=== PATIENT | male | born 1955 | race Caucasian/White ===

== ENCOUNTER 2017-09-20 12:30 | Day surgery (SDC) | payer OTHER ==
--- NOTE | 2017-09-20 08:27 | HP ---
DATE OF SURGERY: 09/20/2017 HISTORY OF PRESENT ILLNESS: The patient is a 61 year-old with bulge, not much pain, unsure how long it has been there. He lost a lot of weight. He is felt to have moderately large right inguinal hernia on exam. PAST MEDICAL HISTORY: Reflux. PAST SURGICAL HISTORY: He denies prior inguinal hernia repair in the past. He did have a knee scope in the past. MEDICATIONS: Dexilant. ALLERGIES: NKDA. FAMILY HISTORY: Negative in regards to this problem. SOCIAL HISTORY: No significant alcohol abuse. REVIEW OF SYSTEMS: Twelve systems reviewed. No chest pain or palpitations other systems negative or noncontributory as above and per preadmission questionnaire. PHYSICAL EXAMINATION: GENERAL: No acute distress. HEENT: Sclerae nonicteric. NECK: No JVD. CHEST: Equal excursion, nonlabored breathing. CVS: Regular rate and rhythm. ABDOMEN: Soft. No peritoneal signs. Moderately large right inguinal hernia on exam. EXTREMITIES: No significant edema. NEURO: Alert, oriented, moving extremities symmetrically. No gross motor deficits noted. IMPRESSION: Right inguinal hernia. I feel the patient will benefit from repair. We discussed the options of open versus laparoscopic. Given the size of hernia, might have less recurrence with open repair and better fixation with mesh. Risks and benefits explained in detail but not limited to bleeding or infection, risk of hematoma or seroma formation, risk of ingrown hair or suture reaction, risk of mesh infection possibly requiring removal. Risk of aches, pains, burning or numbness lower abdomen, groin, thigh or scrotal area possibly chcf or chronic in nature up to 10 to 12% and possibly interfering with sexual function from pain standpoint. He also understands possibility of higher risk of intermittent ache or twinge, general risk of anesthesia, deep venous thrombosis, pulmonary embolism or pneumonia. Overall risk of hernia recurrence. He understands all of the above but not limited to, will proceed with open repair of moderately large right inguinal hernia repair with mesh as an outpatient.
[~2017-09-20 12:30] MED LIST: Lactated Ringers 1,000 ML IV ONE; Sensorcaine 0.25% 10 ML ONE
[2017-09-20] MEDS ORDERED: DIPRIVAN 200 MG/20 ML IV ONE (12:31)
[2017-09-20] MEDS ORDERED: Naropin 0.5% 30 ML VIAL IJ ONE (12:31)
[2017-09-20] MEDS ORDERED: SUBLIMAZE 100 MCG/2 ML IV ONE (12:31)
[2017-09-20] MEDS ORDERED: CEFAZOLIN 2 GM-D5W BAG** 2 GM/50 ML ML IV SCH (13:30)
[2017-09-20] MEDS ORDERED: Lactated Ringers 1,000 ML IV SCH (13:30)
[2017-09-20] MEDS ORDERED: Zofran 4 MG/2 ML VIAL IV ONE (13:58)
[2017-09-20] MEDS ORDERED: BRIDION 200MG/2ML IV ONE (13:58)
[2017-09-20] MEDS ORDERED: TORAdol 30 mg Injection IJ ONE (13:58)
[2017-09-20] MEDS ORDERED: Decadron 4 MG INJ IV ONE (13:58)
[2017-09-20] MEDS ORDERED: Zemuron 100 MG/10 ML IJ ONE (13:58)
[2017-09-20] MEDS ORDERED: SUBLIMAZE 100 MCG/2 ML ONE (15:41)
[2017-09-20 16:24] VITALS: O2SAT 98
[2017-09-20 16:53] VITALS: BP 137/81; PULSE 58
--- NOTE | 2017-09-21 10:31 | OP ---
SURGERY DATE/TIME: 09/20/2017 1430 PREOPERATIVE DIAGNOSIS: Right inguinal hernia. POSTOPERATIVE DIAGNOSIS: Right inguinal hernia. PROCEDURES: Right inguinal hernia repair with mesh. SURGEON: Dr. Mino Ware. COPY PREPARER: Keenan Singer M.D. [facility] Resident. ANESTHESIA: General. ESTIMATED BLOOD LOSS: Minimal. INDICATIONS: As noted above. Risks and benefits explained in detail and not limited to and consent obtained. The site had been confirmed in the preoperative holding area. DESCRIPTION OF PROCEDURE AND FINDINGS: The patient is taken to the operating room. General anesthesia induced. Abdomen and groin prepped and draped in usual sterile fashion. After general anesthesia, a transverse incision made. Dissection carried down through Rosa Maria fascia. A small, little anterior epigastric vein clamped, divided and ligated with Vicryl tie. Dissection carried down through external oblique towards the direction of the external ring carefully elevating the cord up off the pubic tubercle with Pope drain. Cremasteric fibers carefully . A very small splayed out area ilioinguinal and iliohypogastric nerve branches, the visible branches were carefully protected as well as possible and mobilized up off pubic tubercle with Dallin drain. Cremasteric fibers . There was no evidence of any obvious indirect component. He did have a very weak moderately large direct hernia component. It was felt this would benefit from imbricating downward. It was imbricated downward with interrupted 0 PDS normalizing the direct space. I felt he would benefit from mesh repair. A 2 x 4 piece of mesh cut to appropriate dimensions with keyhole cut. It was then secured to the fascia overlying pubic tubercle with 0 Prolene run along Ronni's ligament along the shelving portion of the inguinal ligament with 0 Prolene. 0 Prolene used to transfix the rectus fascia medially. 0 Vicryl used to transfix aponeurosis internal oblique superiorly avoiding the visible ilioinguinal and iliohypogastric nerve branches. Tails of the mesh lying nice and flat under external oblique. They were secured together with interrupted 0 Prolene. The internal ring was felt to be not too tight. Mesh is lying nice and flat in tension-free manner. Good hemostasis noted. External oblique closed with 0 Vicryl. Rosa Maria closed with 3-0 Vicryl, subcu closed with 3-0 Vicryl, skin closed with 4-0 Vicryl. Steri-Strips and sterile dressing applied. The patient tolerated the procedure well. There were no immediate complications. He had very weak inguinal floor. It was felt that he was at moderate risk of recurrence. I felt that this was the best repair possible at this point. Findings discussed with the family out in the waiting area.
== END 2017-09-20 16:58 | disposition home or self-care (01) ==
LOC: SDC 12:30
PROVIDERS: ATTEND Surgery
DX: K40.90 Unilateral inguinal hernia, without obstruction or gangrene, not specified as recurrent (principal)
CPT/HCPCS: 64486; 76937; 76942; 94250; C1781; J0690; J1100; J1885; J2405; J2704; J2795; J3010

== ENCOUNTER 2019-12-08 12:42 | Emergency (ER) | payer MEDICARE, OTHER ==
--- NOTE | 2019-12-08 13:04 | ERPHSYRPT ---
- History of Present Illness Time Seen by Provider: 12/08/19 12:55 Source: patient, family Exam Limitations: no limitations Patient Subjective Stated Complaint: pt here for pain and swelling to left lower leg, swellng started last night, pain for 2 days now Triage Nursing Assessment: pt alert, walked in, resp easy, face mask in place, has swelling and tenderness to left lower leg, no reddness. strong pedal pulse Physician History: This is a 63-year-old white male whose had a left knee replacement in September 2018. A couple days ago the patient was outside his house working. He does not specifically recall injury to his left knee but for 2 days he has had pain in the posterior aspect of his left knee. Last night there is swelling noted. The swelling has from the knee distally on the left side. Patient called his orthopedic surgeon in the office told him to go to the emergency department to get evaluated for a possible deep venous thrombosis. Patient also complains of pain in his right foot specifically in his toes. This is been intermittent pain for 3 months. He denies any specific injury but there is pain present. Patient denies shortness of breath and he denies chest pain Method of Injury: unknown Occurred: days ago (2) Quality: aching, throbbing Severity of Pain-Max: moderate Severity of Pain-Current: moderate Lower Extremities Pain: leg: left, knee: left Modifying Factors: Improves With: movement Allergies/Adverse Reactions: hydrocodone Adverse Reaction (Verified 12/08/19 12:54) Vomiting makes sick Hx Influenza Vaccination/Date Given: Yes Hx Pneumococcal Vaccination/Date Given: No Immunizations Up to Date: Yes Travel Risk - International Travel Have you traveled outside of the country in past 3 weeks: No - Coronavirus Screening Are you exhibiting any of the following symptoms?: No Close contact with a COVID-19 positive Pt in past 14-21 Days: No - Review of Systems Constitutional: No Symptoms Eyes: No Symptoms Ears, Nose, & Throat: No Symptoms Respiratory: No Symptoms Cardiac: No Symptoms Abdominal/Gastrointestinal: No Symptoms Genitourinary Symptoms: No Symptoms Musculoskeletal: Other (Left knee pain and left lower leg swelling) Skin: No Symptoms Neurological: No Symptoms Psychological: No Symptoms Endocrine: No Symptoms Hematologic/Lymphatic: No Symptoms Immunological/Allergic: No Symptoms All Other Systems: Reviewed and Negative - Past Medical History Pertinent Past Medical History: Yes Neurological History: No Pertinent History ENT History: No Pertinent History Cardiac History: No Pertinent History Respiratory History: No Pertinent History Endocrine Medical History: No Pertinent History Musculoskeletal History: Osteoarthritis GI Medical History: GERD History: No Pertinent History Psycho-Social History: No Pertinent History Male Reproductive Disorders: No Pertinent History Other Medical History: GERD. HX OF INGUINAL HERNIA REPAIR RIGHT - Past Surgical History Past Surgical History: Yes Neuro Surgical History: No Pertinent History Cardiac: No Pertinent History Respiratory: No Pertinent History Gastrointestinal: No Pertinent History, Hernia Repair Genitourinary: No Pertinent History Musculoskeletal: Other Male Surgical History: No Pertinent History Other Surgical History: knee scope times 2, left knee surgery - Social History Smoking Status: Former smoker Exposure to second hand smoke: No Drug Use: none Patient Lives Alone: No - Nursing Vital Signs Nursing Vital Signs: Initial Vital Signs Temperature 97.6 F 12/08/19 12:46 Pulse Rate 60 12/08/19 12:46 Respiratory Rate 18 12/08/19 12:46 Blood Pressure 134/82 12/08/19 12:46 O2 Sat by Pulse Oximetry 99 12/08/19 12:46 Pain Scale Pain Intensity 4 - Physical Exam General Appearance: no apparent distress, alert, anxiety Eyes, Ears, Nose, Throat Exam: normal ENT inspection, moist mucous membranes Neck Exam: normal inspection, non-tender, supple, full range of motion Cardiovascular/Respiratory Exam: chest non-tender, normal breath sounds, regular rate/rhythm, heart sounds normal, no respiratory distress Gastrointestinal/Abdominal Exam: non-tender Back Exam: normal inspection, normal range of motion, No CVA tenderness, No vertebral tenderness Hips Exam: bilateral: non-tender, normal inspection, normal range of motion, no evidence of injury Legs Exam: left leg: normal range of motion, no evidence of injury, soft tissue tenderness, swelling (Left lower leg below the knee) Knees Exam: left knee: normal inspection, normal range of motion, no evidence of injury, bone tenderness, soft tissue tenderness Ankle Exam: bilateral ankle: non-tender, normal inspection, normal range of motion, no evidence of injury Foot Exam: right foot: bone tenderness (Toes), soft tissue tenderness (Toes), left foot: non-tender, bilateral foot: normal inspection, normal range of motion, no evidence of injury Neuro/Tendon Exam: normal sensation, normal motor functions, normal tendon func tions Mental Status Exam: alert, oriented x 3, cooperative Skin Exam: normal color, warm, dry SpO2 Interpretation: normal SpO2: 99 O2 Delivery: Room Air - Course Nursing assessment & vital signs reviewed: Yes Ordered Tests: Active Orders 24 hr Category Date Time Status FOOT (MINIMUM 3 VIEWS) Stat Exams 12/08/19 13:06 Completed KNEE (3 VIEWS) Stat Exams 12/08/19 13:06 Completed LOWER LEG Stat Exams 12/08/19 13:07 Completed VENOUS UNILAT/LIMITED EXTREMIT [US] Stat Exams 12/08/19 13:07 Completed - Progress Progress: unchanged Progress Note: 12/08/19 14:20 X-ray of right foot reveals no acute fracture or dislocation X-ray of the left tibia and fibula reveals no acute fracture or dislocation X-ray of left knee shows a small nonspecific effusion with an intact prosthesis. Venous Doppler of the left lower extremity is negative for deep venous thrombosis This patient and his spouse state that they believe he has taken tramadol in the past which is helped his pain. I will send a prescription to their pharmacy. I also instructed him to elevate his left lower extremity above the level of his heart and use an ice pack. Counseled pt/family regarding: diagnosis, need for follow-up, rad results - Departure Departure Disposition: Home Clinical Impression: Left anterior knee pain, Left leg swelling Condition: Stable Critical Care Time: No Referrals: ANEUDY DERAS DO [Primary Care Provider] - Additional Instructions: Use an ice pack 3 times a day for 10 to 15 minutes at a time for the next 72 hours. When not ambulating, elevate the left lower extremity above the level of the heart. Follow-up with your primary care physician or orthopedic surgeon for persistent swelling and leg pain. Prescriptions: Tramadol HCl 50 mg [Ultram 50 mg] 50 mg PO TID PRN #10 tablet PRN Reason: Moderate Pain
--- NOTE | 2019-12-08 13:51 | XRAY ---
Indication: Left leg pain and swelling. Two-dimensional sonogram and color Doppler imaging of the major venous vessels of the left leg was performed. Comparison: None No thrombus seen in the examined deep venous vessels of the left leg including greater saphenous vein. Veins demonstrate normal compressibility. Venous waveforms are normal with and without augmentation. Impression: Left leg negative for DVT.
--- NOTE | 2019-12-08 14:02 | XRAY ---
Indication: Pain and swelling following fall. Comparison: None 2 view left lower leg demonstrates medial knee hemiarthroplasty with intact prosthesis and a small plantar heel spur. No other bony, articular, or soft tissue abnormalities.
--- NOTE | 2019-12-08 14:04 | XRAY ---
Indication: Pain and swelling following fall. Comparison: None 3 view left knee demonstrates medial hemiarthroplasty with intact prosthesis, lateral compartment degenerative chondrocalcinosis/spurring, tiny patella spurring, and small nonspecific effusion. No other bony, articular, or soft tissue abnormalities.
--- NOTE | 2019-12-08 14:04 | XRAY ---
Indication: Pain and swelling following fall. Comparison: None 3 nonweightbearing views right foot demonstrates small plantar heel spur. No other bony, articular, or soft tissue abnormalities.
[2019-12-08 14:08] VITALS: BP 112/72; PULSE 57
[2019-12-08 14:25] VITALS: O2SAT 99
== END 2019-12-08 14:40 | disposition home or self-care (01) ==
LOC: ED 12:42
DX: M25.562 Pain in left knee (principal); M79.89 Other specified soft tissue disorders; Z96.652 Presence of left artificial knee joint
CPT/HCPCS: 73562; 73590; 73630; 93971; 99283

== ENCOUNTER 2021-05-19 16:04 | Emergency (ER) | payer MEDICARE ==
--- NOTE | 2021-05-19 16:33 | ERPHSYRPT ---
- History of Present Illness Source: patient Exam Limitations: no limitations Patient Subjective Stated Complaint: pt here for cough, runny nose, nausea for 2 days now Triage Nursing Assessment: pt alert, resp easy, skin w/d/p. face mask in place, abd soft, Physician History: 65 [address] w [address]/Cough/Coryza/Nausea x1 day. His daughter has similar symptoms. Fever/myalgias/vomiting/diarrhea/chest pain/dyspnea are denied. Timing/Duration: yesterday Activities at Onset: rest Severity of Dyspnea-Max: mild Severity of Dyspnea-Current: mild Possible Cause: no prior episodes Modifying Factors: Improves With: coughing Associated Symptoms: cough, No edema, No fever, No insomnia, No lightheadedness, No wheezing, No weakness, No ankle swelling, No chills, No hemoptysis, No calf pain, No dizziness, No heaviness, No heart racing, No lightheadedness, No leg swelling, No muscle spasms feet, No muscle spasms hands, No painful breathing, No productive cough, No sweating, No tightness, No tingling face Allergies/Adverse Reactions: hydrocodone Adverse Reaction (Verified 05/19/21 16:08) Vomiting makes sick Hx Influenza Vaccination/Date Given: No Hx Pneumococcal Vaccination/Date Given: Yes Travel Risk - International Travel Have you traveled outside of the country in past 3 weeks: No - Coronavirus Screening Are you exhibiting any of the following symptoms?: Yes Symptoms: Cough: New Onset, Vomiting/Diarrhea, Headaches/Body Aches/Fatigue Close contact with a COVID-19 positive Pt in past 14-21 Days: No - Vaccine Status Have you recieved a Covid-19 vaccination: No - Review of Systems Constitutional: No Symptoms Eyes: No Symptoms Ears, Nose, & Throat: No Symptoms, Throat Pain Respiratory: No Symptoms, Cough Cardiac: No Symptoms Abdominal/Gastrointestinal: No Symptoms, Nausea, No Vomiting, No Diarrhea Genitourinary Symptoms: No Symptoms Musculoskeletal: No Symptoms Skin: No Symptoms Neurological: No Symptoms Psychological: No Symptoms Endocrine: No Symptoms Hematologic/Lymphatic: No Symptoms Immunological/Allergic: No Symptoms - Past Medical History Pertinent Past Medical History: No Neurological History: No Pertinent History ENT History: No Pertinent History Cardiac History: No Pertinent History Respiratory History: No Pertinent History Endocrine Medical History: No Pertinent History Musculoskeletal History: Osteoarthritis GI Medical History: GERD History: No Pertinent History Psycho-Social History: No Pertinent History Male Reproductive Disorders: No Pertinent History Other Medical History: GERD. HX OF INGUINAL HERNIA REPAIR RIGHT - Past Surgical History Past Surgical History: Yes Neuro Surgical History: No Pertinent History Cardiac: No Pertinent History Respiratory: No Pertinent History Gastrointestinal: No Pertinent History, Hernia Repair Genitourinary: No Pertinent History Musculoskeletal: Other Male Surgical History: No Pertinent History Other Surgical History: knee scope times 2, left knee surgery - Social History Smoking Status: Former smoker Exposure to second hand smoke: No Drug Use: none Patient Lives Alone: No Significant Family History: no pertinent family hx - Nursing Vital Signs Nursing Vital Signs: Initial Vital Signs Temperature 98.8 F 05/19/21 16:10 Pulse Rate 107 H 05/19/21 16:10 Respiratory Rate 18 05/19/21 16:10 Blood Pressure 160/83 05/19/21 16:10 O2 Sat by Pulse Oximetry 99 05/19/21 16:10 Pain Scale Pain Intensity 0 Hypertension - Physical Exam General Appearance: no apparent distress Eye Exam: PERRL/EOMI, eyes nml inspection Ears, Nose, Throat Exam: hearing grossly normal, normal ENT inspection, normal pharynx Neck Exam: normal inspection, non-tender, supple, full range of motion, No Brudzinski, No Kernig's, No meningismus Respiratory Exam: normal breath sounds, lungs clear, airway intact, No respiratory distress Cardiovascular/Chest Exam: normal heart sounds, regular rate/rhythm, normal peripheral pulses, No murmur Abdominal/Gastrointestinal Exam: soft, normal bowel sounds, No tenderness Extremity Exam: non-tender, normal range of motion, normal inspection, normal capillary refill, no calf tenderness, no pedal edema Peripheral Pulses Exam: carotid (R): 2+, carotid (L): 2+ Neurologic Exam: alert, oriented x 3, cooperative, director of assessing II-XII nml as tested, normal mood/affect, sensation nml, No motor deficits, No sensory deficit Skin Exam: normal color, warm, dry Lymphatic Exam: No adenopathy SpO2 Interpretation: normal SpO2: 99 O2 Delivery: Room Air - Course Nursing assessment & vital signs reviewed: Yes Lab/Rad Data: Laboratory Results 05/19/21 05/19/21 Range/Units 16:40 16:28 Influenza Type A Ag NEGATIVE (NEGATIVE) Influenza Type B Ag NEGATIVE (NEGATIVE) RSV (PCR) NEGATIVE (Negative) SARS-CoV-2 (PCR) NEGATIVE (NEGATIVE) Group A Strep Antibody NOT DETECTED (NEGATIVE) - Progress Counseled pt/family regarding: lab results, diagnosis, need for follow-up - Departure Departure Disposition: Home Clinical Impression: Bronchitis Condition: Stable Critical Care Time: No Referrals: DOCTOR,NO FAMILY [Primary Care Provider] - Follow up/PCP as directed Instructions: Acute Bronchitis, Adult (DC) Additional Instructions: Follow up with your family MD Start Doxycycline if cough gets worse or if you develop a temperature greater than 100.5 Prescriptions: Doxycycline Monohydrate 100 mg PO BID #14
[2021-05-19 17:24] LABS: INFLUENZA A NEGATIVE (NEGATIVE); INFLUENZA B NEGATIVE (NEGATIVE); RESPIRATORY SYNCTIAL VIRUS NEGATIVE (Negative); SARS-CoV-2 Xpert Express NEGATIVE (NEGATIVE)
[2021-05-19 17:38] VITALS: BP 147/76; PULSE 93
[2021-05-19 21:00] VITALS: O2SAT 99
== END 2021-05-19 17:43 | disposition home or self-care (01) ==
LOC: ED 16:04
DX: J40 Bronchitis, not specified as acute or chronic (principal); J02.9 Acute pharyngitis, unspecified; R05.1 Acute cough; R09.81 Nasal congestion; R11.0 Nausea; K21.9 Gastro-esophageal reflux disease without esophagitis
CPT/HCPCS: 0241U; 87651; 99283

== ENCOUNTER 2024-12-06 17:52 | Emergency (ER) | payer MEDICARE ==
[2024-12-06 18:03] VITALS: TEMP 97.2
[2024-12-06] MEDS ORDERED: ZOFRAN ODT 4 MG ONE (18:38)
[2024-12-06] MEDS ORDERED: MOTRIN 600 MG ONE (18:38)
[2024-12-06] MEDS ORDERED: NORCO 5/325 MG ONE ×2 (18:39→21:57)
[2024-12-06] MEDS: ZOFRAN ODT 4 MG PO ONE (18:41)
[2024-12-06] MEDS: NORCO 5/325 MG PO ONE ×2 (18:41→21:58)
[2024-12-06] MEDS: MOTRIN 600 MG PO ONE (18:42)
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
[2024-12-06] MEDS ORDERED: Augmentin 875-125 Tablet ONE (18:53)
[2024-12-06] MEDS ORDERED: Adacel Vial IM ONE (18:53)
[2024-12-06] MEDS: Adacel Vial IM ONE (18:55)
[2024-12-06] MEDS: Augmentin 875-125 Tablet PO ONE (18:56)
[2024-12-06 21:07] VITALS: RESP 18
[2024-12-06 22:03] VITALS: BP 131/81; PULSE 60; O2SAT 96
--- NOTE | 2024-12-07 08:35 | XRAY ---
Indication: Pain following fall. Multiple contiguous axial images obtained through the head without contrast. Comparison: None Age-appropriate global atrophy, minimal periventricular degenerative microischemia, and 7 mm focus old infarct left insula. No acute intracranial hemorrhage, abnormal extra-axial fluid collection, or mass effect. 4th ventricle is midline without hydrocephalus. Gao-white matter differentiation preserved. Bony calvarium intact. 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 Remaining visualized paranasal sinuses and mastoid air cells are clear. 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
--- NOTE | 2024-12-07 08:35 | XRAY ---
Indication: Pain following fall. Comparison: None 3 view right shoulder demonstrates osteopenia and mild acromioclavicular degenerative arthropathy with tiny heterotopic ossification. No acute bony, articular, or soft tissue abnormalities.
--- NOTE | 2024-12-07 08:39 | XRAY ---
Indication: Left orbit/maxillofacial pain following fall. Nasal laceration. Multiple contiguous axial images obtained through facial bones. Sagittal and coronal reformatted images obtained. Comparison: None A few bilateral dental amalgams produces beam artifact. Nondepressed right nasal bone fracture. No other acute fracture or suspicious bony lesions. Orbits including roof, schulz, and floors intact. Paranasal sinuses and nasal passages are clear. Incidental small left ethmoid sinus osteoma. Visualized noncontrasted soft tissues demonstrates minimal bilateral lateral carotid calcifications. No suspicious focal solid/cystic soft tissue mass. CT head and CT cervical spine reported separately. Impression: Right nasal bone fracture. Incidental left ethmoid sinus osteoma.
--- NOTE | 2024-12-07 08:41 | XRAY ---
Indication: Left orbit/maxillofacial pain following fall. Nasal laceration. Multiple contiguous axial images obtained through cervical spine. Sagittal and coronal reformatted images obtained. Comparison: None Osseous structures demineralized consistent with patient's age. Axial images negative for acute fracture, suspicious bony lesions, or spinal canal stenosis. There is mild/moderate multilevel degenerative spondylosis. Sagittal and coronal reformatted images demonstrates normal alignment with C3-T1 disc space narrowing. No acute compression fracture, subluxation, or jumped facet. Normal appearing craniocervical junction. Visualized noncontrasted soft tissues demonstrates minimal bilateral carotid calcifications. Lung apices are clear. CT head and CT facial bones reported separately. Impression: Negative acute fracture/subluxation. Chronic findings including osteopenia, multilevel degenerative spondylosis, and carotid calcifications.
== END 2024-12-06 22:19 | disposition home or self-care (01) ==
LOC: ED 17:52
DX: S00.31XA Abrasion of nose, initial encounter (principal); S00.83XA Contusion of other part of head, initial encounter; S02.2XXB Fracture of nasal bones, initial encounter for open fracture; S46.911A Strain of unspecified muscle, fascia and tendon at shoulder and upper arm level, right arm, initial encounter; W01.0XXA Fall on same level from slipping, tripping and stumbling without subsequent striking against object, initial encounter; M25.511 Pain in right shoulder; D16.4 Benign neoplasm of bones of skull and face; Z79.899 Other long term (current) drug therapy; Z23 Encounter for immunization

== ENCOUNTER 2025-01-26 05:50 | Observation (INO) | payer MEDICARE ==
--- NOTE | 2025-01-26 06:35 | ERPHSYRPT ---
- History of Present Illness Historian: patient, family Exam Limitations: no limitations Patient Subjective Stated Complaint: fever, chills, cough, vomiting, diarrhea (subsided) Triage Nursing Assessment: . Timing/Duration: day(s) (8) Quality: cramping (Intermittently) Abdominal Pain Onset Location: epigastric Pain Radiation: no radiation Severity of Pain-Max: mild Severity of Pain-Current: mild Modifying Factors: Improves With: coughing, vomiting Associated Symptoms: loss of appetite, nausea, vomiting, weakness, other (Generalized aching), No chest pain, No diarrhea, No fever/chills Previous symptoms: no prior history, no recent treatment Hx Tetanus, Diphtheria Vaccination/Date Given: Yes Hx Influenza Vaccination/Date Given: No Hx Pneumococcal Vaccination/Date Given: Yes <LUL QUESADA - Last Filed: 01/26/25 06:36> <HEBERT CADENA - Last Filed: 01/26/25 09:50> - History of Present Illness Time Seen by Provider: 01/26/25 06:20 Physician History: This is a 69-year-old white male patient arrives per private vehicle accompanied by spouse and is a patient of Dr. Garner with the complaint of intermittent vomiting over the last 8 days, since [facility]. Patient has associated cough and low-grade fever. Patient was exposed to individual family members at [facility] who had similar symptoms. Prior to [facility] the patient was feeling well and normal. He denies chest pain. He has no history of coronary artery disease. He has mild abdominal cramping when the vomiting comes on suddenly. Patient has never had symptoms like this before. He has never had endoscopy in the past. Patient has a history of gastroesophageal reflux disease and prostate issues. He is unable to consistently hold oral intake down. (LUL QUESADA) Allergies/Adverse Reactions: hydrocodone Adverse Reaction (Verified 01/26/25 06:17) Vomiting makes sick Home Medications: Omeprazole 20 mg PO DAILY 12/06/24 [History] Tamsulosin HCl 0.4 mg PO DAILY 12/06/24 [History] Travel Risk - International Travel Have you traveled outside of the country in past 3 weeks: No - Emerging Infectious Disease Are you exhibiting symptoms associated with any current EIDs: Yes Symptoms: Abdominal Pain, Cough: New Onset, Fever, Vomitting <LUL QUESADA - Last Filed: 01/26/25 06:36> - Review of Systems Constitutional: Fever, Weakness Eyes: No Symptoms Ears, Nose, & Throat: No Symptoms Respiratory: Cough Cardiac: No Symptoms, No Chest Pain Abdominal/Gastrointestinal: Abdominal Pain, Nausea, Vomiting, Appetite Changes Genitourinary Symptoms: No Symptoms Musculoskeletal: Arthralgias, Myalgias, No Injury Skin: No Symptoms Neurological: No Symptoms Psychological: No Symptoms Endocrine: No Symptoms Hematologic/Lymphatic: No Symptoms Immunological/Allergic: No Symptoms All Other Systems: Reviewed and Negative <LUL QUESADA - Last Filed: 01/26/25 06:36> - Past Medical History Pertinent Past Medical History: No Neurological History: No Pertinent History ENT History: No Pertinent History Cardiac History: No Pertinent History Respiratory History: No Pertinent History Endocrine Medical History: No Pertinent History Musculoskeletal History: Osteoarthritis GI Medical History: GERD, Hernia History: No Pertinent History Psycho-Social History: No Pertinent History Male Reproductive Disorders: No Pertinent History Other Medical History: GERD. HX OF INGUINAL HERNIA REPAIR RIGHT. 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 - Past Surgical History Past Surgical History: Yes Neuro Surgical History: No Pertinent History Cardiac: No Pertinent History Respiratory: No Pertinent History Gastrointestinal: Hernia Repair Genitourinary: No Pertinent History Musculoskeletal: Other Male Surgical History: No Pertinent History Other Surgical History: knee scope times 2, bilat partial knee replacement, right foot surgery Significant Family History: no pertinent family hx - Social History Smoking Status: Former smoker Exposure to second hand smoke: Yes Drug Use: none - Social Determinants of Health Will the patient participate in the screening: Yes Do you worry about a steady place to live?: No Do you have any problems with any of the following?: No known problems In the past 12 months,have you had to go without utilities?: No Transportation Issues: No Has anyone in your support network made you feel unsafe?: No Have you or anyone in your house had to go w/o enough food: No <LUL QUESADA - Last Filed: 01/26/25 06:36> - Physical Exam General Appearance: no apparent distress, mild distress, alert, anxiety, thin Eye Exam: PERRL/EOMI, eyes nml inspection Ears, Nose, Throat Exam: normal ENT inspection, moist mucous membranes Neck Exam: normal inspection, non-tender, supple, full range of motion Respiratory Exam: normal breath sounds, lungs clear, airway intact, No chest tenderness, No respiratory distress Cardiovascular Exam: regular rate/rhythm, normal heart sounds, normal peripheral pulses Gastrointestinal/Abdomen Exam: soft, normal bowel sounds, tenderness (Mild diffuse to palpation), guarding, No rebound Rectal Exam: not done Back Exam: normal inspection, normal range of motion, No CVA tenderness, No vertebral tenderness Extremity Exam: normal inspection, normal range of motion, pelvis stable Neurologic Exam: alert, oriented x 3, cooperative, 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, nml cerebellar function, nml station & gait, sensation nml Skin Exam: normal color, warm, dry Lymphatic Exam: No adenopathy SpO2 Interpretation: normal SpO2: 95 O2 Delivery: Room Air <LUL QUESADA - Last Filed: 01/26/25 06:36> - Nursing Vital Signs Nursing Vital Signs: Initial Vital Signs Temperature 100.5 F 01/26/25 06:04 Pulse Rate 89 01/26/25 06:04 Respiratory Rate 18 01/26/25 06:04 Blood Pressure 141/91 01/26/25 06:04 O2 Sat by Pulse Oximetry 95 01/26/25 06:04 Pain Scale Pain Intensity 0 - Course Nursing assessment & vital signs reviewed: Yes <LUL QUESADA - Last Filed: 01/26/25 06:36> - Course EKG Interpreted by Me: RATE (90), Sinus Rhythm, Left [place] Deviation, prolonged QT interval, NORMAL QRS - Radiology Exams Chest X-ray Interpretation: Teleradiologist Report (Left infrahilar opacity pneumonia versus pneumonitis) - CT Exams Abdomen/Pelvis CT Interpretation: Tele-radiologist Report (Gallstones, enlarged prostate. Other chronic findings please see report for details) <HEBERT CADENA - Last Filed: 01/26/25 09:50> Ordered Tests: Active Orders 24 hr Category Date Time Status EKG-ER Only STAT Care 01/26/25 06:32 Completed IV Insertion STAT Care 01/26/25 06:32 Active ABDOMEN AND PELVIS W/0 CONTRAS [CT] Stat Exams 01/26/25 07:03 Completed CHEST 1 VIEW (PORTABLE) Stat Exams 01/26/25 07:03 Completed AMYLASE Stat Lab 01/26/25 06:15 Completed BLOOD CULTURE Stat Lab 01/26/25 06:53 Received CBC W DIFF Stat Lab 01/26/25 06:15 Completed CMP Stat Lab 01/26/25 06:15 Completed LIPASE Stat Lab 01/26/25 06:15 Completed Lactic Acid Stat Lab 01/26/25 06:46 Completed MAGNESIUM Stat Lab 01/26/25 06:15 Completed MONO SCREEN Stat Lab 01/26/25 06:15 Completed TROPONIN Q4H Lab 01/26/25 06:15 Completed TROPONIN Q4H Lab 01/26/25 10:45 Ordered TROPONIN Q4H Lab 01/26/25 14:45 Ordered UA W/RFX UR CULTURE Stat Lab 01/26/25 06:33 Ordered Transfer Order Routine Transfer 01/26/25 Ordered Medication Summary Generic Name Dose Route Start Last Admin Trade Name Freq PRN Reason Stop Dose Admin Ceftriaxone Sodium 2 gm in 100 mls @ 200 mls/hr 01/26/25 09:40 Rocephin 2 Gm/100 Ml Nacl IV 01/26/25 10:09 STAT ONE Azithromycin 500 mg/ Sodium 250 mls @ 250 mls/hr 01/26/25 09:40 Chloride IV 01/26/25 10:39 STAT STA Discontinued Medications Generic Name Dose Route Start Last Admin Trade Name Freq PRN Reason Stop Dose Admin Acetaminophen 975 mg 01/26/25 08:08 Acetaminophen 325 Mg Tablet PO 01/26/25 08:09 STAT ONE Acetaminophen 1,000 mg 01/26/25 08:09 01/26/25 08:34 Acetaminophen 1,000 Mg/100 Ml Ml IV 01/26/25 08:10 1,000 mg ONCE STA Administration Sodium Chloride 1,000 mls @ 999 mls/hr 01/26/25 06:32 01/26/25 08:11 Sodium Chloride 0.9% 1000 Ml IV 01/26/25 07:32 Infused .Q1H1M STA Infusion Sodium Chloride Confirm 01/26/25 06:41 Sodium Chloride 0.9% 1000 Ml Administered 01/26/25 06:42 Dose 1,000 mls @ ud .ROUTE .STK-MED ONE Ondansetron HCl 4 mg 01/26/25 06:32 01/26/25 06:46 Ondansetron Hcl 4 Mg/2 Ml Vial IV 01/26/25 06:33 4 mg STAT ONE Administration Ondansetron HCl Confirm 01/26/25 06:41 Ondansetron Hcl 4 Mg/2 Ml Vial Administered 01/26/25 06:42 Dose 4 mg .ROUTE .STK-MED ONE Pantoprazole Sodium 40 mg 01/26/25 06:32 01/26/25 06:47 Pantoprazole 40 Mg Vial IV 01/26/25 06:33 40 mg STAT ONE Administration Pantoprazole Sodium Confirm 01/26/25 06:41 Pantoprazole 40 Mg Vial Administered 01/26/25 06:42 Dose 40 mg IV .STK-MED ONE Lab/Rad Data: Laboratory Result Diagrams 01/26/25 06:15 01/26/25 06:15 Laboratory Results 01/26/25 01/26/25 01/26/25 Range/Units 06:46 06:15 06:15 WBC (4.23-9.07) x10^3/uL RBC (4.63-6.08) x10^6/uL Hgb (13.7-17.5) g/dL Hct (40.1-51.0) % MCV (79.0-92.2) fL MCH (25.7-32.2) pg MCHC (32.3-36.5) g/dL RDW (11.6-14.4) % Plt Count (163-337) x10^3/uL MPV (9.4-12.4) fL Gran % (34.0-67.9) % Immature Gran % (Auto) (0.001-0.429) % Nucleat RBC Rel Count (0.00-0.2) % Eos # (Auto) (0.04-0.54) x10^3/uL Immature Gran # (Auto) (0.001-0.031) x10^3u/L Absolute Lymphs (auto) (1.32-3.57) x10^3/uL Absolute Monos (auto) (0.30-0.82) x10^3/uL Absolute Nucleated RBC (0.00-0.012) x10^3u/L Lymphocytes % (21.8-53.1) % Monocytes % (5.3-12.2) % Eosinophils % (0.8-7.0) % Basophils % (0.2-1.2) % Absolute Granulocytes (1.78-5.38) x10^3/uL Basophils # (0.01-0.08) x10^3/uL Sodium 136 (135-145) mmol/L Potassium 3.7 (3.5-5.1) mmol/L Chloride 103 (98-107) mmol/L Carbon Dioxide 17 L (22-30) mmol/L Anion Gap 19.6 H (5-15) MEQ/L BUN 18 (9-20) mg/dL Creatinine 1.11 (0.66-1.25) mg/dL Estimated GFR 71.0 ML/MIN Glucose 115 H (74-106) mg/dL Lactic Acid 1.8 (0.4-2.0) Calcium 9.4 (8.4-10.2) mg/dL Magnesium 1.8 (1.6-2.3) mg/dL Total Bilirubin 1.00 (0.2-1.3) mg/dL AST 38 (17-59) U/L ALT 36 (0-50) U/L Alkaline Phosphatase 60 (38-126) U/L Troponin I 0.015 (0.000-0.033) ng/mL Serum Total Protein 7.6 (6.3-8.2) g/dL Albumin 4.8 (3.5-5.0) g/dL Amylase 66 (30-110) U/L Lipase 145 (23-300) U/L Monoscreen NEGATIVE (NEGATIVE) Influenza Type A Ag (NEGATIVE) Influenza Type B Ag (NEGATIVE) RSV (PCR) (NEGATIVE) SARS-CoV-2 (PCR) (NEGATIVE) 01/26/25 01/26/25 Range/Units 06:15 06:15 WBC 8.1 (4.23-9.07) x10^3/uL RBC 5.48 (4.63-6.08) x10^6/uL Hgb 16.8 (13.7-17.5) g/dL Hct 49.4 (40.1-51.0) % MCV 90.1 (79.0-92.2) fL MCH 30.7 (25.7-32.2) pg MCHC 34.0 (32.3-36.5) g/dL RDW 13.6 (11.6-14.4) % Plt Count 152 L (163-337) x10^3/uL MPV 11.6 (9.4-12.4) fL Gran % 73.8 H (34.0-67.9) % Immature Gran % (Auto) 0.4 (0.001-0.429) % Nucleat RBC Rel Count 0.0 (0.00-0.2) % Eos # (Auto) 0 L (0.04-0.54) x10^3/uL Immature Gran # (Auto) 0.03 (0.001-0.031) x10^3u/L Absolute Lymphs (auto) 1.20 L (1.32-3.57) x10^3/uL Absolute Monos (auto) 0.85 H (0.30-0.82) x10^3/uL Absolute Nucleated RBC 0.00 (0.00-0.012) x10^3u/L Lymphocytes % 14.9 L (21.8-53.1) % Monocytes % 10.5 (5.3-12.2) % Eosinophils % 0.0 L (0.8-7.0) % Basophils % 0.4 (0.2-1.2) % Absolute Granulocytes 5.95 H (1.78-5.38) x10^3/uL Basophils # 0.03 (0.01-0.08) x10^3/uL Sodium (135-145) mmol/L Potassium (3.5-5.1) mmol/L Chloride (98-107) mmol/L Carbon Dioxide (22-30) mmol/L Anion Gap (5-15) MEQ/L BUN (9-20) mg/dL Creatinine (0.66-1.25) mg/dL Estimated GFR ML/MIN Glucose (74-106) mg/dL Lactic Acid (0.4-2.0) Calcium (8.4-10.2) mg/dL Magnesium (1.6-2.3) mg/dL Total Bilirubin (0.2-1.3) mg/dL AST (17-59) U/L ALT (0-50) U/L Alkaline Phosphatase (38-126) U/L Troponin I (0.000-0.033) ng/mL Serum Total Protein (6.3-8.2) g/dL Albumin (3.5-5.0) g/dL Amylase (30-110) U/L Lipase (23-300) U/L Monoscreen (NEGATIVE) Influenza Type A Ag NEGATIVE (NEGATIVE) Influenza Type B Ag NEGATIVE (NEGATIVE) RSV (PCR) NEGATIVE (NEGATIVE) SARS-CoV-2 (PCR) NEGATIVE (NEGATIVE) <LUL QUESADA - Last Filed: 01/26/25 06:36> - Progress Progress: improved Counseled pt/family regarding: lab results, diagnosis, rad results <HEBERT CADENA - Last Filed: 01/26/25 09:50> - Progress Progress Note: 01/26/25 06:40 My medical decision making and the assignment of moderate to high complexity of this patient's medical issue today is based on review of the patient's past medical history, reviewed the patient's medication list, reviewed patient drug allergy list, history present illness and physical findings on examination. The workup in this patient includes placement of an intravenous line, infusion of normal saline solution, and infusion of Zofran, infusion of Protonix, CBC, CMP, magnesium level, amylase, lipase, urinalysis, viral swabs, monotest, twelve-lead EKG, troponin level, chest x-ray and CT scan of the abdomen and pelvis without contrast. Differential diagnosis includes but is not limited to viral illness, mononucleosis, dehydration, urinary tract infection, pancreatitis, bowel obstruction, colitis, diverticulitis, electrolyte abnormalities, arrhythmia, myocardial infarction, pulmonary infiltrate I am transferring care to Dr. Hebert Cadena at shift change. I reviewed the patient history, presenting complaint and workup results that are pending. He will follow-up on these results and make final disposition. (LUL QUESADA) Patient endorsed to Dr. Cadena at approximately [address] Cadena advised to follow- up on pending imaging studies. Chest x-ray shows a left infrahilar interstitial opacity. While in our ED patient spiked a fever. Blood cultures are pending. Patient received 2 g Rocephin and 500 of azithromycin IV piggyback. While in our ED patient observed to be hypoxic at 91% on room air. 2 L nasal cannula applied. CT abdomen pelvis ordered and completed. No acute pathology. Patient has gallstones and an enlarged prostate amongst other chronic findings. Patient has no right upper quadrant pain. Patient continues to be nauseous. Patient feels too ill to go home. We will admit patient for further evaluation and treatment. Case discussed with hospitalist Dr. cheung who accepts admission to observation. Plan of care discussed with patient and his who are at bedside. They agree to admission at [facility] for further evaluation and treatment. Portions of this note were created with voice recognition technology. There may be grammatical, spelling, punctuation or sound alike errors 01/26/25 09:47 (HEBERT CADENA) - Departure Departure Disposition: Home Critical Care Time: No <LUL QUESADA - Last Filed: 01/26/25 06:36> <HEBERT CADENA - Last Filed: 01/26/25 09:50> - Departure Clinical Impression: Vomiting, Fever, Cough, Pneumonia, Gallstones, Enlarged prostate, Abdominal pain Condition: Stable Referrals: TASHA GARNER [Primary Care Provider, UNKNOWN] - Follow up/PCP as directed
[2025-01-26] MEDS ORDERED: Zofran 4 MG/2 ML VIAL ONE (06:41)
[2025-01-26] MEDS ORDERED: PROTONIX 40 MG IV IV ONE (06:41)
[2025-01-26] MEDS: Zofran 4 MG/2 ML VIAL IV ONE (06:46)
[2025-01-26] MEDS: PROTONIX 40 MG IV IV ONE (06:47)
[2025-01-26 07:00] LABS: INFLUENZA A NEGATIVE (NEGATIVE); INFLUENZA B NEGATIVE (NEGATIVE); RESPIRATORY SYNCTIAL VIRUS NEGATIVE (NEGATIVE); SARS-CoV-2 Xpert Express NEGATIVE (NEGATIVE)
[2025-01-26 07:03] LABS: BASOPHIL % 0.4 % (0.2-1.2); Basophil (Absolute #) 0.03 x10^3/uL (0.01-0.08); Eosinophil (Absolute #) 0 x10^3/uL (0.04-0.54); Hematocrit 49.4 % (40.1-51.0); Hemoglobin 16.8 g/dL (13.7-17.5); IMMATURE GRAN # 0.03 x10^3u/L (0.001-0.031); IMMATURE GRAN % 0.4 % (0.001-0.429); Lymphocyte (Absolute #) 1.20 x10^3/uL (1.32-3.57); Mean Corpuscular Hemoglobin 30.7 pg (25.7-32.2); Mean Corpuscular Hgb Concent. 34.0 g/dL (32.3-36.5); Monocyte (Absolute #) 0.85 x10^3/uL (0.30-0.82); NUCLEATED RBC # 0.00 x10^3u/L (0.00-0.012); NUCLEATED RBC % 0.0 % (0.00-0.2); Platelet Count 152 x10^3/uL (163-337); Red Blood Count 5.48 x10^6/uL (4.63-6.08); White Blood Count 8.1 x10^3/uL (4.23-9.07)
[2025-01-26 07:08] LABS: Calcium 9.4 mg/dL (8.4-10.2); Carbon Dioxide 17.0 mmol/L (22-30); Creatinine 1 1.11 mg/dL (0.66-1.25); EST GLOMERULAR FILTRATION RATE 71.0 ML/MIN; Glucose 115.0 mg/dL (74-106); Potassium 3.7 mmol/L (3.5-5.1); SGOT/AST 38.0 U/L (17-59); SGPT/ALT 36.0 U/L (0-50); TROPONIN 0.015 ng/mL (0.000-0.033); Total Protein 7.6 g/dL (6.3-8.2)
[2025-01-26] MEDS ORDERED: TYLENOL 325 MG PO ONE (08:08)
[2025-01-26] MEDS: OFIRMEV IV STA (08:34)
--- NOTE | 2025-01-26 08:55 | XRAY ---
Indication: Vomiting. Weakness. Flu symptoms. Multiple contiguous axial images obtained through the abdomen and pelvis without contrast. Comparison: None Lung bases demonstrates mild pulmonary emphysema and mild bibasilar subsegmental atelectasis/scarring. Heart not enlarged with small pericardial effusion/thickening anteriorly. Small hiatal hernia. Noncontrasted stomach and bowel loops appear nonobstructed with normal appendix. Minimal sigmoid diverticulosis without diverticulitis. Gallbladder demonstrates several small cholesterol gallstones largest 9 mm. Several tiny splenic calcified granulomas. Enlarged prostate gland impresses on base of bladder. No free fluid/air. Remaining liver, gallbladder, pancreas, spleen, adrenal glands, kidneys, ureters, and bladder are unremarkable for noncontrast exam. Minimal scattered aortoiliac calcifications without AAA. Osseous structures intact with mild multilevel thoracolumbar degenerative spondylosis and minimal dextroscoliosis centered at thoracolumbar junction. Impression: 1. Chronic findings including pulmonary emphysema, atelectasis/scarring, hiatal hernia, sigmoid diverticulosis, cholesterol gallstones, enlarged prostate gland, arteriosclerotic disease, and chronic bony findings. 2. Remaining CT abdomen/pelvis without contrast is negative.
--- NOTE | 2025-01-26 08:56 | XRAY ---
Indication: Cough. Weakness. Flu symptoms. Comparison: None Portable apical lordotic chest demonstrates mild left infrahilar interstitial opacities, possible pneumonia/pneumonitis. No consolidation/large effusion. Heart not enlarged. Bony thorax intact with osteopenia and mild degenerative changes.
[2025-01-26] MEDS ORDERED: ROCEPHIN 2 GM/100 ML NACL 2 GM/100 ML IVPB IV ONE (10:02)
[2025-01-26] MEDS: ROCEPHIN 2 GM/100 ML NACL 2 GM/100 ML IVPB IV ONE (10:03)
[2025-01-26 10:29] LABS: Glucose, Urine Negative (Negative); Protein,Urine Dip 100 (Negative); RBC 0-2 /HPF (0-5); WBC 0-2 /HPF (0-5)
[2025-01-26] MEDS: ZITHROMAX IV*** 500 MG in Sodium Chloride 0.9% 250 ML 250 ML IV STA (11:53)
[2025-01-26] MEDS ORDERED: Zofran 4 MG/2 ML VIAL IV PRN (11:58)
[2025-01-26] MEDS: Compazine 10 MG/2 ML IV ONE (12:12)
--- NOTE | 2025-01-26 12:21 | PCM.HP ---
History of Present Illness - Chief Complaint Chief Complaint: pneumonia Date: 01/26/25 History of Present Illness: Mr.ROE NORMAN is a The patient is a 69-year-old male with a past medical history of emphysema, BPH, GERD, and osteoarthritis who presented to the ER on 01/26/25 with intermittent vomiting over the past eight days, beginning around [facility]. He reports associated cough and low-grade fever, noting exposure to family members at [facility] with similar symptoms. Prior to this, he was feeling well. He denies chest pain and has no history of coronary artery disease. He describes mild abdominal cramping accompanying sudden episodes of vomiting and has never experienced symptoms like this before. He has not undergone endoscopy in the past. He has been unable to consistently tolerate oral intake. In the ER, he was treated with Zofran for nausea and vomiting. Chest x-ray revealed mild left infrahilar interstitial opacities suggestive of possible pneumonia or pneumonitis, without consolidation or effusion. The heart was not enlarged, and the bony thorax showed osteopenia and mild degenerative changes. CT of the abdomen demonstrated chronic findings including pulmonary emphysema, atelectasis/scarring, hiatal hernia, sigmoid diverticulosis, cholesterol gallstones, enlarged prostate, arteriosclerotic disease, and chronic bony changes, with no acute abnormalities. He was started on IV antibiotics, which will be continued, and Compazine was added for persistent nausea and vomiting. He denies diarrhea, with his last bowel movement two days ago. His temperature is 100.6, and he is on 2 L nasal cannula with oxygen saturation at 95%, placed for comfort. Respiratory therapy will attempt to wean oxygen. A CTA chest has been ordered for further evaluation. - Review of Systems Constitutional: Fever, Fatigue, No Chills Eyes: No Symptoms Ears, Nose, & Throat: No Symptoms Respiratory: No Cough, No Short Of Breath Cardiac: No Chest Pain, No Edema, No Syncope Abdominal/Gastrointestinal: Nausea, Vomiting, Diarrhea, Appetite Changes, No Abdominal Pain Genitourinary Symptoms: No Dysuria Musculoskeletal: No Back Pain, No Neck Pain Skin: No Rash Neurological: No Dizziness, No Focal Weakness, No Sensory Changes Psychological: No Symptoms Endocrine: No Symptoms Hematologic/Lymphatic: No Symptoms Immunological/Allergic: No Symptoms Medications & Allergies Home Medications: Home Medication List Omeprazole 20 mg PO DAILY 12/06/24 [History Confirmed 01/26/25] Tamsulosin HCl 0.4 mg PO DAILY 12/06/24 [History Confirmed 01/26/25] Allergies/Adverse Reactions: Allergies Allergy/AdvReac Type Severity Reaction Status Date / Time Sulfa (Sulfonamide Allergy Rash Verified 01/26/25 11:43 Antibiotics) hydrocodone AdvReac Vomiting Verified 01/26/25 06:17 - Past Medical History Past Medical History: No Neurological History: No Pertinent History ENT History: No Pertinent History Cardiac History: No Pertinent History Respiratory History: No Pertinent History Endocrine Medical History: No Pertinent History Musculoskelatal History: Osteoarthritis GI Medical History: GERD, Hernia History: No Pertinent History Pyscho-Social History: No Pertinent History Male Reproductive Disorders: No Pertinent History Comment: GERD. HX OF INGUINAL HERNIA REPAIR RIGHT. 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 - Past Surgical History Past Surgical History: Yes Neuro Surgical History: No Pertinent History Cardiac History: No Pertinent History Respiratory Surgery: No Pertinent History GI Surgical History: Hernia Repair Genitourinary Surgical Hx: No Pertinent History Musculskeletal Surgical Hx: Other Male Surgical History: No Pertinent History Other Surgical History: knee scope times 2, bilat partial knee replacement, right foot surgery Significant Family History: no pertinent family hx - Social History Smoking Status: Never smoker Exposure to second hand smoke: Yes Alcohol: None Drug Use: none - Social Determinants of Health Will the patient participate in the screening: Yes Do you worry about a steady place to live?: No Do you have any problems with any of the following?: No known problems In the past 12 months,have you had to go without utilities?: No Have you or anyone in your house had to go without enough: No Transportation Issues: No Has anyone in your support network made you feel unsafe?: No Does the patient want assistance with any of the above?: No - Physical Exam Vital Signs: Vital Signs - 24 hr Temp Pulse Resp BP BP Pulse Ox 01/26/25 11:01 100.6 F 82 18 119/60 95 01/26/25 10:38 97 01/26/25 10:15 85 18 104/65 94 L 01/26/25 10:08 124/63 95 01/26/25 10:00 78/66 94 L 01/26/25 09:45 121/86 92 L 01/26/25 09:30 92 H 18 128/73 92 L 01/26/25 09:15 120/75 91 L 01/26/25 09:00 141/74 96 01/26/25 08:45 132/82 96 01/26/25 08:30 123/81 94 L 01/26/25 08:15 124/49 95 01/26/25 08:03 122/63 94 L 01/26/25 08:01 121/62 94 L 01/26/25 07:00 98 H 18 145/85 94 L 01/26/25 06:42 95 01/26/25 06:04 100.5 F 89 18 141/91 95 General Appearance: no apparent distress, alert Neurologic Exam: alert, oriented x 3, cooperative, normal mood/affect, nml cerebellar function, nml station & gait, sensation nml, No motor deficits Eye Exam: PERRL/EOMI, eyes nml inspection Ears, Nose, Throat Exam: normal ENT inspection, TMs normal, pharynx normal, moist mucous membranes Neck Exam: normal inspection, non-tender, supple, full range of motion Respiratory Exam: normal breath sounds, lungs clear, No respiratory distress Cardiovascular Exam: regular rate/rhythm, normal heart sounds, normal peripheral pulses Gastrointestinal/Abdomen Exam: soft, normal bowel sounds (Hyperactive BS X4), No tenderness, No mass Back Exam: normal inspection, normal range of motion, No CVA tenderness, No vertebral tenderness Extremity Exam: normal inspection, normal range of motion, pelvis stable Skin Exam: normal color, warm, dry, No rash Lymphatic Exam: No adenopathy Results - Labs Lab/Micro Results: Lab Results-Last 24 Hours 01/26/25 01/26/25 01/26/25 Range/Units 06:15 06:15 06:15 WBC 8.1 (4.23-9.07) x10^3/uL RBC 5.48 (4.63-6.08) x10^6/uL Hgb 16.8 (13.7-17.5) g/dL Hct 49.4 (40.1-51.0) % MCV 90.1 (79.0-92.2) fL MCH 30.7 (25.7-32.2) pg MCHC 34.0 (32.3-36.5) g/dL RDW 13.6 (11.6-14.4) % Plt Count 152 L (163-337) x10^3/uL MPV 11.6 (9.4-12.4) fL Gran % 73.8 H (34.0-67.9) % Immature Gran % (Auto) 0.4 (0.001-0.429) % Nucleat RBC Rel Count 0.0 (0.00-0.2) % Eos # (Auto) 0 L (0.04-0.54) x10^3/uL Immature Gran # (Auto) 0.03 (0.001-0.031) x10^3u/L Absolute Lymphs (auto) 1.20 L (1.32-3.57) x10^3/uL Absolute Monos (auto) 0.85 H (0.30-0.82) x10^3/uL Absolute Nucleated RBC 0.00 (0.00-0.012) x10^3u/L Lymphocytes % 14.9 L (21.8-53.1) % Monocytes % 10.5 (5.3-12.2) % Eosinophils % 0.0 L (0.8-7.0) % Basophils % 0.4 (0.2-1.2) % Absolute Granulocytes 5.95 H (1.78-5.38) x10^3/uL Basophils # 0.03 (0.01-0.08) x10^3/uL Sodium 136 (135-145) mmol/L Potassium 3.7 (3.5-5.1) mmol/L Chloride 103 (98-107) mmol/L Carbon Dioxide 17 L (22-30) mmol/L Anion Gap 19.6 H (5-15) MEQ/L BUN 18 (9-20) mg/dL Creatinine 1.11 (0.66-1.25) mg/dL Estimated GFR 71.0 ML/MIN Glucose 115 H (74-106) mg/dL Lactic Acid (0.4-2.0) Calcium 9.4 (8.4-10.2) mg/dL Magnesium 1.8 (1.6-2.3) mg/dL Total Bilirubin 1.00 (0.2-1.3) mg/dL AST 38 (17-59) U/L ALT 36 (0-50) U/L Alkaline Phosphatase 60 (38-126) U/L Troponin I 0.015 (0.000-0.033) ng/mL Serum Total Protein 7.6 (6.3-8.2) g/dL Albumin 4.8 (3.5-5.0) g/dL Amylase 66 (30-110) U/L Lipase 145 (23-300) U/L Urine Color (Yellow) Urine Appearance (Clear) Urine pH (4.6-8.0) Ur Specific Floyd (1.005-1.030) Urine Protein (Negative) Urine Glucose (UA) (Negative) mg/dL Urine Ketones (Negative) Urine Blood (Negative) Urine Nitrite (Negative) Urine Bilirubin (Negative) Urine Urobilinogen (0.2) mg/dL Ur Leukocyte Esterase (Negative) U Hyaline Cast (Auto) (0-2) /LPF Urine Microscopic RBC (0-5) /HPF Urine Microscopic WBC (0-5) /HPF Ur Epithelial Cells (None Seen) /HPF Urine Bacteria (None Seen) /HPF Urine Culture Reflexed (NO) Monoscreen (NEGATIVE) Influenza Type A Ag NEGATIVE (NEGATIVE) Influenza Type B Ag NEGATIVE (NEGATIVE) RSV (PCR) NEGATIVE (NEGATIVE) SARS-CoV-2 (PCR) NEGATIVE (NEGATIVE) 01/26/25 01/26/25 01/26/25 Range/Units 06:15 06:46 09:52 WBC (4.23-9.07) x10^3/uL RBC (4.63-6.08) x10^6/uL Hgb (13.7-17.5) g/dL Hct (40.1-51.0) % MCV (79.0-92.2) fL MCH (25.7-32.2) pg MCHC (32.3-36.5) g/dL RDW (11.6-14.4) % Plt Count (163-337) x10^3/uL MPV (9.4-12.4) fL Gran % (34.0-67.9) % Immature Gran % (Auto) (0.001-0.429) % Nucleat RBC Rel Count (0.00-0.2) % Eos # (Auto) (0.04-0.54) x10^3/uL Immature Gran # (Auto) (0.001-0.031) x10^3u/L Absolute Lymphs (auto) (1.32-3.57) x10^3/uL Absolute Monos (auto) (0.30-0.82) x10^3/uL Absolute Nucleated RBC (0.00-0.012) x10^3u/L Lymphocytes % (21.8-53.1) % Monocytes % (5.3-12.2) % Eosinophils % (0.8-7.0) % Basophils % (0.2-1.2) % Absolute Granulocytes (1.78-5.38) x10^3/uL Basophils # (0.01-0.08) x10^3/uL Sodium (135-145) mmol/L Potassium (3.5-5.1) mmol/L Chloride (98-107) mmol/L Carbon Dioxide (22-30) mmol/L Anion Gap (5-15) MEQ/L BUN (9-20) mg/dL Creatinine (0.66-1.25) mg/dL Estimated GFR ML/MIN Glucose (74-106) mg/dL Lactic Acid 1.8 (0.4-2.0) Calcium (8.4-10.2) mg/dL Magnesium (1.6-2.3) mg/dL Total Bilirubin (0.2-1.3) mg/dL AST (17-59) U/L ALT (0-50) U/L Alkaline Phosphatase (38-126) U/L Troponin I (0.000-0.033) ng/mL Serum Total Protein (6.3-8.2) g/dL Albumin (3.5-5.0) g/dL Amylase (30-110) U/L Lipase (23-300) U/L Urine Color Dark Yellow (Yellow) Urine Appearance Clear (Clear) Urine pH 5.0 (4.6-8.0) Ur Specific Floyd >=1.030 A (1.005-1.030) Urine Protein 100 A (Negative) Urine Glucose (UA) Negative (Negative) mg/dL Urine Ketones 15 A (Negative) Urine Blood Negative (Negative) Urine Nitrite Negative (Negative) Urine Bilirubin Small A (Negative) Urine Urobilinogen 0.2 (0.2) mg/dL Ur Leukocyte Esterase Negative (Negative) U Hyaline Cast (Auto) 3-5 A (0-2) /LPF Urine Microscopic RBC 0-2 (0-5) /HPF Urine Microscopic WBC 0-2 (0-5) /HPF Ur Epithelial Cells None Seen (None Seen) /HPF Urine Bacteria None Seen (None Seen) /HPF Urine Culture Reflexed NO (NO) Monoscreen NEGATIVE (NEGATIVE) Influenza Type A Ag (NEGATIVE) Influenza Type B Ag (NEGATIVE) RSV (PCR) (NEGATIVE) SARS-CoV-2 (PCR) (NEGATIVE) 01/26/25 Range/Units 10:55 WBC (4.23-9.07) x10^3/uL RBC (4.63-6.08) x10^6/uL Hgb (13.7-17.5) g/dL Hct (40.1-51.0) % MCV (79.0-92.2) fL MCH (25.7-32.2) pg MCHC (32.3-36.5) g/dL RDW (11.6-14.4) % Plt Count (163-337) x10^3/uL MPV (9.4-12.4) fL Gran % (34.0-67.9) % Immature Gran % (Auto) (0.001-0.429) % Nucleat RBC Rel Count (0.00-0.2) % Eos # (Auto) (0.04-0.54) x10^3/uL Immature Gran # (Auto) (0.001-0.031) x10^3u/L Absolute Lymphs (auto) (1.32-3.57) x10^3/uL Absolute Monos (auto) (0.30-0.82) x10^3/uL Absolute Nucleated RBC (0.00-0.012) x10^3u/L Lymphocytes % (21.8-53.1) % Monocytes % (5.3-12.2) % Eosinophils % (0.8-7.0) % Basophils % (0.2-1.2) % Absolute Granulocytes (1.78-5.38) x10^3/uL Basophils # (0.01-0.08) x10^3/uL Sodium (135-145) mmol/L Potassium (3.5-5.1) mmol/L Chloride (98-107) mmol/L Carbon Dioxide (22-30) mmol/L Anion Gap (5-15) MEQ/L BUN (9-20) mg/dL Creatinine (0.66-1.25) mg/dL Estimated GFR ML/MIN Glucose (74-106) mg/dL Lactic Acid (0.4-2.0) Calcium (8.4-10.2) mg/dL Magnesium (1.6-2.3) mg/dL Total Bilirubin (0.2-1.3) mg/dL AST (17-59) U/L ALT (0-50) U/L Alkaline Phosphatase (38-126) U/L Troponin I < 0.012 (0.000-0.033) ng/mL Serum Total Protein (6.3-8.2) g/dL Albumin (3.5-5.0) g/dL Amylase (30-110) U/L Lipase (23-300) U/L Urine Color (Yellow) Urine Appearance (Clear) Urine pH (4.6-8.0) Ur Specific Floyd (1.005-1.030) Urine Protein (Negative) Urine Glucose (UA) (Negative) mg/dL Urine Ketones (Negative) Urine Blood (Negative) Urine Nitrite (Negative) Urine Bilirubin (Negative) Urine Urobilinogen (0.2) mg/dL Ur Leukocyte Esterase (Negative) U Hyaline Cast (Auto) (0-2) /LPF Urine Microscopic RBC (0-5) /HPF Urine Microscopic WBC (0-5) /HPF Ur Epithelial Cells (None Seen) /HPF Urine Bacteria (None Seen) /HPF Urine Culture Reflexed (NO) Monoscreen (NEGATIVE) Influenza Type A Ag (NEGATIVE) Influenza Type B Ag (NEGATIVE) RSV (PCR) (NEGATIVE) SARS-CoV-2 (PCR) (NEGATIVE) - Radiology Impressions Radiology Exams & Impressions: Radiology Procedures Category Date Time Status ABDOMEN AND PELVIS W/0 CONTRAS [CT] Stat Exams 01/26/25 07:03 Completed CHEST 1 VIEW (PORTABLE) Stat Exams 01/26/25 07:03 Completed CHEST WITH CONTRAST [CT] Routine Exams 01/26/25 10:57 Ordered CHEST WITH CONTRAST [CT] Routine Exams 01/26/25 10:57 Stop Req - Other Procedures and Tests Respiratory Therapy 01/26/25 10:58 Oxygen NASAL CANNULA 2 lpm Assessment/Plan (1) Pneumonia Current Visit: Yes Status: Acute Assessment & Plan: - As seen on CXR: Portable apical lordotic chest demonstrates mild left infrahilar interstitial opacities, possible pneumonia/pneumonitis. No consolidation/large effusion. Heart not enlarged. Bony thorax intact with osteopenia and mild degenerative changes. - CTA chest pending - Ceftriaxone, azithromycin - O2 2lNC at 94%- BL RA - RT to wean O2 - Lung sounds clear - BC x2 pending - CBC, CMP reviewed - Duonebs Q4 PRN - Tessalon for cough - Tele- consider steroids Code(s): J18.9 - PNEUMONIA, UNSPECIFIED ORGANISM (2) Nausea, vomiting, and diarrhea Current Visit: Yes Status: Acute Assessment & Plan: - Compazine started - Received Zofran in ER - Diarrhea resolved - Probiotic Code(s): R11.2 - NAUSEA WITH VOMITING, UNSPECIFIED; R19.7 - DIARRHEA, UNSPECIFIED (3) Dehydration Current Visit: Yes Status: Acute Assessment & Plan: - Anion gap 19.6 - IVF - NS @ 75ml/hr started - CO2 17- trend - CMP reviewed - Urine specific gravity elevated Code(s): E86.0 - DEHYDRATION (4) Headache Current Visit: Yes Status: Acute Assessment & Plan: - Tylenol Q6 hr - IVF - Flu/COVID/RSV negative - Flonase for sinus pressure Code(s): R51.9 - HEADACHE, UNSPECIFIED (5) Fever Current Visit: Yes Status: Acute Assessment & Plan: - Temp 100.5 on admission - Tylenol IV gave in ER - Scheduled PO Tylenol started Code(s): R50.9 - FEVER, UNSPECIFIED (6) Abdominal pain Current Visit: Yes Status: Acute Assessment & Plan: CT abd/pelvis: 1. Chronic findings including pulmonary emphysema, atelectasis/scarring, hiatal hernia, sigmoid diverticulosis, cholesterol gallstones, enlarged prostate gland, arteriosclerotic disease, and chronic bony findings. 2. Remaining CT abdomen/pelvis without contrast is negative. - CBC, CMP reviewed - Tele - Compazine for N/V - Probiotic Code(s): R10.9 - UNSPECIFIED ABDOMINAL PAIN (7) Gallstones Current Visit: Yes Status: Acute Assessment & Plan: - Cholesterol gallstones see on CT abd/pelvis - Nonobstructing - Lipid panel in AM Code(s): K80.20 - CALCULUS OF GALLBLADDER W/O CHOLECYSTITIS W/O OBSTRUCTION (8) BPH (benign prostatic hyperplasia) Current Visit: Yes Status: Chronic Assessment & Plan: - Continue Flomax Code(s): N40.0 - BENIGN PROSTATIC HYPERPLASIA WITHOUT LOWER URINRY TRACT SYMP (9) Emphysema lung Current Visit: Yes Status: Chronic Assessment & Plan: - Chronic as seen on CTA abd - CTA chest pending - Wean from O2 @ 2lNC- BL RA VTE: Heaprin BID PPI: protonix Next of Kin: D/C plan: 1-2 days Code status: Full Plan of care time: > 52 minutes Code(s): J43.9 - EMPHYSEMA, UNSPECIFIED
[2025-01-26] MEDS: TYLENOL 325 MG PO SCH (12:39)
[2025-01-26] MEDS ORDERED: Tessalon Perles 100 MG PO PRN (12:46)
--- NOTE | 2025-01-26 13:09 | XRAY ---
Indication: Left upper lobe pneumonia. Short of breath. Pulmonary embolus. Multiple contiguous axial images obtained through the chest using 80 cc Isovue 370 contrast. Comparison: None Good opacification pulmonary arteries. However mild diffuse respiration artifact limits evaluation of the more distal lobar and segmental branches. No obvious pulmonary embolus. Heart not enlarged with small pericardial effusion/thickening anteriorly. Aorta is normal in course and caliber. Tiny subcarinal and right hilar calcified node. No pathologic mediastinal/hilar lymphadenopathy. Small hiatal hernia. Lungs demonstrates subtle patchy left lower and posterior left upper lobe ground-glass airspace disease. Minimal bibasilar subsegmental atelectasis/scarring. No effusion. Bony thorax intact with minimal degenerative changes throughout spine and minimal levoscoliosis centered at T10. CT abdomen/pelvis reported earlier in the day. Impression: 1. Respiration artifact limits pulmonary embolus evaluation. No obvious pulmonary embolus. 2. Subtle patchy left lower and left upper lobe ground-glass airspace disease presumed clinically reported pneumonia. 3. Chronic findings including bibasilar atelectasis/scarring, hiatal hernia, degenerative spondylosis, levoscoliosis, and old granulomatous disease.
[2025-01-26] MEDS: Flomax 0.4 MG PO SCH (14:14)
[2025-01-26] MEDS: Acidophilus TABLET PO SCH (14:14)
[2025-01-26] MEDS: Flonase NASAL NS SCH (14:15)
[2025-01-26] MEDS: HEPARIN 5000 UNITS/0.5 ML (HIGH RISK MED) SQ SCH (23:00)
[2025-01-27 05:17] LABS: Hematocrit 44.3 % (40.1-51.0); Hemoglobin 14.7 g/dL (13.7-17.5); Mean Corpuscular Hemoglobin 30.1 pg (25.7-32.2); Mean Corpuscular Hgb Concent. 33.2 g/dL (32.3-36.5); Platelet Count 131 x10^3/uL (163-337); Red Blood Count 4.89 x10^6/uL (4.63-6.08); White Blood Count 9.7 x10^3/uL (4.23-9.07)
[2025-01-27 06:10] LABS: Calcium 8.8 mg/dL (8.4-10.2); Carbon Dioxide 18.0 mmol/L (22-30); Creatinine 1 0.9 mg/dL (0.66-1.25); EST GLOMERULAR FILTRATION RATE 91.3 ML/MIN; Glucose 92.0 mg/dL (74-106); Potassium 3.6 mmol/L (3.5-5.1); SGOT/AST 39.0 U/L (17-59); SGPT/ALT 31.0 U/L (0-50); Total Protein 6.0 g/dL (6.3-8.2)
[2025-01-27 06:20] LABS: Cholesterol 117.0 mg/dL (50-200); LDL, DIRECT 64.0 mg/dL (30-100); TRIGLYCERIDE 115.0 mg/dL (30-150)
[2025-01-27] MEDS: ROCEPHIN 1 GM / 100 ML NaCl 1 GM/100 ML IVPB IV SCH (09:26)
[2025-01-27] MEDS: Protonix 40MG Tablet PO SCH (09:30)
[2025-01-27] MEDS: ZITHROMAX IV*** 500 MG in Sodium Chloride 0.9% 250 ML 250 ML IV SCH (10:38)
--- NOTE | 2025-01-27 13:16 | PCM.NOTE ---
Date and Time: 01/27/25 1307 Subjective Assessment: 01/26/25 Mr.ROE NORMAN is a The patient is a 69-year-old male with a past medical history of emphysema, BPH, GERD, and osteoarthritis who presented to the ER on 01/26/25 with intermittent vomiting over the past eight days, beginning around Thanksgiving. He reports associated cough and low-grade fever, noting exposure to family members at [facility] with similar symptoms. Prior to this, he was feeling well. He denies chest pain and has no history of coronary artery disease. He describes mild abdominal cramping accompanying sudden episodes of vomiting and has never experienced symptoms like this before. He has not undergone endoscopy in the past. He has been unable to consistently tolerate oral intake. In the ER, he was treated with Zofran for nausea and vomiting. Chest x-ray revealed mild left infrahilar interstitial opacities suggestive of possible pneumonia or pneumonitis, without consolidation or effusion. The heart was not enlarged, and the bony thorax showed osteopenia and mild degenerative changes. CT of the abdomen demonstrated chronic findings including pulmonary emphysema, atelectasis/scarring, hiatal hernia, sigmoid diverticulosis, cholesterol gallstones, enlarged prostate, arteriosclerotic disease, and chronic bony changes, with no acute abnormalities. He was started on IV antibiotics, which will be continued, and Compazine was added for persistent nausea and vomiting. He denies diarrhea, with his last bowel movement two days ago. His temperature is 100.6, and he is on 2 L nasal cannula with oxygen saturation at 95%, placed for comfort. Respiratory therapy will attempt to wean oxygen. A CTA chest has been ordered for further evaluation. 01/27/25 The patient is sitting up in bed this morning and reports that he is starting to feel better. He continues to experience elevated temperatures and noted that he awoke last night soaked in sweat, requiring a change of linens and gown. Blood cultures 2 remain negative, while sputum culture is still pending. His white blood cell count is elevated at 9.7, and the anion gap has improved to 15.6. Current management includes continuation of IV fluids, IV antibiotics, steroids, breathing treatments, and Advair. The plan is for the patient to remain hospitalized another night, with likely discharge in the morning. <LEANNE ANDRES - Last Filed: 01/27/25 13:07> Date and Time: 01/27/25 1525 <SAMANTHA SMITH - Last Filed: 01/27/25 15:25> - Review of Systems Constitutional: Fever, Fatigue, Malaise, No Chills Eyes: No Symptoms Ears, Nose, & Throat: No Symptoms Respiratory: No Cough, No Short Of Breath Cardiac: No Chest Pain, No Edema, No Syncope Abdominal/Gastrointestinal: No Abdominal Pain, No Nausea, No Vomiting, No Diarrhea Genitourinary Symptoms: No Dysuria Musculoskeletal: No Back Pain, No Neck Pain Skin: No Rash Neurological: No Dizziness, No Focal Weakness, No Sensory Changes Psychological: No Symptoms Endocrine: No Symptoms Hematologic/Lymphatic: No Symptoms Immunological/Allergic: No Symptoms <LEANNE ANDRES - Last Filed: 01/27/25 13:07> Objective Exam General Appearance: no apparent distress, alert Neurologic Exam: alert, oriented x 3, cooperative, normal mood/affect, nml cerebellar function, sensation nml, No motor deficits Skin Exam: normal color, warm, dry Eye Exam: PERRL, EOMI, eyes nml inspection Ears, Nose, Throat Exam: normal ENT inspection, pharynx normal, moist mucous membranes Neck Exam: normal inspection, non-tender, supple, full range of motion Respiratory Exam: normal breath sounds, lungs clear, No respiratory distress Cardiovascular Exam: regular rate/rhythm, normal heart sounds Gastrointestinal/Abdomen Exam: soft, No tenderness, No mass Extremity Exam: normal inspection, normal range of motion Back Exam: normal inspection, normal range of motion, No CVA tenderness, No vertebral tenderness Male Genitalia Exam: deferred Rectal Exam: deferred <LEANNE ANDRES - Last Filed: 01/27/25 13:07> Objective Data Vital Signs: Vital Signs - 24 hr Temp Pulse Resp BP Pulse Ox 01/27/25 11:29 98.4 F 67 16 111/59 95 01/27/25 07:35 98.4 F 62 18 132/74 96 01/27/25 07:02 78 18 98 01/27/25 04:00 98.4 F 82 18 131/71 98 01/27/25 00:00 99.2 F 80 16 126/81 95 01/26/25 19:58 92 H 18 95 01/26/25 19:46 99.1 F 95 H 23 151/70 95 01/26/25 16:00 98.3 F 74 19 131/68 95 01/26/25 13:30 92 H 16 95 Pain Assessment - Last Documented Pain Intensity 0 Pain Scale Used 0-10 Pain Scale Intake and Output: Intake & Output 01/25/25 01/26/25 01/27/25 01/28/25 11:59 11:59 11:59 11:59 Intake Total 2123 480 Output Total 200 Balance 1923 480 Weight 92.9 kg Lab Results: Lab Results-Last 24 Hours 01/26/25 01/26/25 01/27/25 Range/Units 06:46 14:25 04:38 WBC (4.23-9.07) x10^3/uL RBC (4.63-6.08) x10^6/uL Hgb (13.7-17.5) g/dL Hct (40.1-51.0) % MCV (79.0-92.2) fL MCH (25.7-32.2) pg MCHC (32.3-36.5) g/dL RDW (11.6-14.4) % Plt Count (163-337) x10^3/uL MPV (9.4-12.4) fL Sodium (135-145) mmol/L Potassium (3.5-5.1) mmol/L Chloride (98-107) mmol/L Carbon Dioxide (22-30) mmol/L Anion Gap (5-15) MEQ/L BUN (9-20) mg/dL Creatinine (0.66-1.25) mg/dL Estimated GFR ML/MIN Glucose (74-106) mg/dL Hemoglobin A1c 5.63 (4.5-6.0) % Calcium (8.4-10.2) mg/dL Total Bilirubin (0.2-1.3) mg/dL AST (17-59) U/L ALT (0-50) U/L Alkaline Phosphatase (38-126) U/L Troponin I < 0.012 (0.000-0.033) ng/mL Serum Total Protein (6.3-8.2) g/dL Albumin (3.5-5.0) g/dL Triglycerides 115 (30-150) mg/dL Cholesterol 117 (50-200) mg/dL LDL Cholesterol 64 (30-100) mg/dL HDL Cholesterol 29 L (40-60) mg/dL Heart Disease Risk Ratio 4.0 01/27/25 01/27/25 Range/Units 04:38 04:38 WBC 9.7 H (4.23-9.07) x10^3/uL RBC 4.89 (4.63-6.08) x10^6/uL Hgb 14.7 (13.7-17.5) g/dL Hct 44.3 (40.1-51.0) % MCV 90.6 (79.0-92.2) fL MCH 30.1 (25.7-32.2) pg MCHC 33.2 (32.3-36.5) g/dL RDW 13.8 (11.6-14.4) % Plt Count 131 L (163-337) x10^3/uL MPV 12.0 (9.4-12.4) fL Sodium 136 (135-145) mmol/L Potassium 3.6 (3.5-5.1) mmol/L Chloride 106 (98-107) mmol/L Carbon Dioxide 18 L (22-30) mmol/L Anion Gap 15.6 H (5-15) MEQ/L BUN 16 (9-20) mg/dL Creatinine 0.90 (0.66-1.25) mg/dL Estimated GFR 91.3 ML/MIN Glucose 92 (74-106) mg/dL Hemoglobin A1c (4.5-6.0) % Calcium 8.8 (8.4-10.2) mg/dL Total Bilirubin 1.00 (0.2-1.3) mg/dL AST 39 (17-59) U/L ALT 31 (0-50) U/L Alkaline Phosphatase 55 (38-126) U/L Troponin I (0.000-0.033) ng/mL Serum Total Protein 6.0 L (6.3-8.2) g/dL Albumin 3.8 (3.5-5.0) g/dL Triglycerides (30-150) mg/dL Cholesterol (50-200) mg/dL LDL Cholesterol (30-100) mg/dL HDL Cholesterol (40-60) mg/dL Heart Disease Risk Ratio Radiology Exams: Radiology Procedures Category Date Time Status ABDOMEN AND PELVIS W/0 CONTRAS [CT] Stat Exams 01/26/25 07:03 Completed CHEST 1 VIEW (PORTABLE) Stat Exams 01/26/25 07:03 Completed CHEST WITH CONTRAST [CT] Routine Exams 01/26/25 10:57 Completed Medications: Medications Generic Name Dose Route Start Last Admin Trade Name Freq PRN Reason Stop Dose Admin Acetaminophen 650 mg 01/26/25 12:00 01/27/25 11:42 Acetaminophen 325 Mg Tablet PO 02/25/25 11:59 650 mg Q6H JUANCARLOS Administration Albuterol/Ipratropium 3 ml 01/26/25 12:57 Ipratropium/Albuterol Sulfate 3 Ml Ampul.Neb IH 02/25/25 12:56 Q4HPRN PRN SHORTNESS OF BREATH/WHEEZING Benzonatate 100 mg 01/26/25 12:46 Benzonatate 100 Mg Capsule PO 02/25/25 12:45 TID PRN PRN COUGH Fluticasone Propionate 0 gm 01/26/25 14:00 01/27/25 09:30 Fluticasone Propionate 16 Gm Bottle Nasal [place] NS 02/25/25 13:59 16 gm DAILY JUANCARLOS Administration Heparin Sodium (Beef Lung) 5,000 unit 01/26/25 22:00 01/27/25 09:31 Heparin 5000 Units/0.5 Ml 5,000 Unit/0.5 Ml Syr SQ 02/25/25 21:59 5,000 unit BID JUANCARLOS Administration Sodium Chloride 1,000 mls @ 75 mls/hr 01/26/25 12:00 01/27/25 01:51 Sodium Chloride 0.9% 1000 Ml IV 02/25/25 11:59 75 mls/hr .[id number] JUANCARLOS Administration Azithromycin 500 mg/ Sodium 250 mls @ 250 mls/hr 01/27/25 10:00 01/27/25 10:38 Chloride IV 02/26/25 09:59 250 mls/hr Q24H10 JUANCARLOS Administration Ceftriaxone Sodium 1 gm in 100 mls @ 200 mls/hr 01/27/25 10:00 01/27/25 09:26 Rocephin 1 Gm / 100 Ml Nacl IV 02/26/25 09:59 200 mls/hr Q24H10 JUANCARLOS Administration Lactobacillus Acidophilus 1 tab 01/26/25 14:00 01/27/25 09:30 Lactobacillus Acidophilus 1 Tab Tablet PO 02/25/25 13:59 1 tab DAILY JUANCARLOS Administration Pantoprazole Sodium 40 mg 01/27/25 10:00 01/27/25 09:30 Protonix (Pantoprazole) 40 Mg Tablet PO 02/26/25 09:59 40 mg DAILY JUANCARLOS Administration Prochlorperazine Edisylate 10 mg 01/26/25 12:02 Prochlorperazine Edisylate 10 Mg/2 Ml Vial IV 02/25/25 12:01 Q6H PRN PRN NAUSEA/VOMITING Tamsulosin HCl 0.4 mg 01/26/25 14:00 01/27/25 09:30 Tamsulosin Hcl 0.4 Mg Cap PO 02/25/25 13:59 0.4 mg DAILY JUANCARLOS Administration Discontinued Medications Generic Name Dose Route Start Last Admin Trade Name Freq PRN Reason Stop Dose Admin Acetaminophen 975 mg 01/26/25 08:08 Acetaminophen 325 Mg Tablet PO 01/26/25 08:09 STAT ONE Acetaminophen 1,000 mg 01/26/25 08:09 01/26/25 08:34 Acetaminophen 1,000 Mg/100 Ml Ml IV 01/26/25 08:10 1,000 mg ONCE STA Administration Sodium Chloride 1,000 mls @ 999 mls/hr 01/26/25 06:32 01/26/25 08:11 Sodium Chloride 0.9% 1000 Ml IV 01/26/25 07:32 Infused .Q1H1M STA Infusion Sodium Chloride Confirm 01/26/25 06:41 Sodium Chloride 0.9% 1000 Ml Administered 01/26/25 06:42 Dose 1,000 mls @ ud .ROUTE .STK-MED ONE Ceftriaxone Sodium 2 gm in 100 mls @ 200 mls/hr 01/26/25 09:40 01/26/25 10:03 Rocephin 2 Gm/100 Ml Nacl IV 01/26/25 10:09 200 mls/hr STAT ONE 200 mls/hr Administration Azithromycin 500 mg/ Sodium 250 mls @ 250 mls/hr 01/26/25 09:40 01/26/25 11:53 Chloride IV 01/26/25 10:39 250 mls/hr STAT STA Administration Ceftriaxone Sodium Confirm 01/26/25 10:02 Rocephin 2 Gm/100 Ml Nacl Administered 01/26/25 10:03 Dose 2 gm in 100 mls @ ud IV .STK-MED ONE Ondansetron HCl 4 mg 01/26/25 06:32 01/26/25 06:46 Ondansetron Hcl 4 Mg/2 Ml Vial IV 01/26/25 06:33 4 mg STAT ONE Administration Ondansetron HCl Confirm 01/26/25 06:41 Ondansetron Hcl 4 Mg/2 Ml Vial Administered 01/26/25 06:42 Dose 4 mg .ROUTE .STK-MED ONE Ondansetron HCl 4 mg 01/26/25 11:58 Ondansetron Hcl 4 Mg/2 Ml Vial IV 02/25/25 11:57 Q6H PRN PRN NAUSEA/VOMITING Pantoprazole Sodium 40 mg 01/26/25 06:32 01/26/25 06:47 Pantoprazole 40 Mg Vial IV 01/26/25 06:33 40 mg STAT ONE Administration Pantoprazole Sodium Confirm 01/26/25 06:41 Pantoprazole 40 Mg Vial Administered 01/26/25 06:42 Dose 40 mg IV .STK-MED ONE Prochlorperazine Edisylate 10 mg 01/26/25 11:55 01/26/25 12:12 Prochlorperazine Edisylate 10 Mg/2 Ml Vial IV 01/26/25 11:56 10 mg STAT ONE Administration <LEANNE ANDRES - Last Filed: 01/27/25 13:07> Vital Signs: Vital Signs - 24 hr Temp Pulse Resp BP Pulse Ox 01/27/25 11:29 98.4 F 67 16 111/59 95 01/27/25 07:35 98.4 F 62 18 132/74 96 01/27/25 07:02 78 18 98 01/27/25 04:00 98.4 F 82 18 131/71 98 01/27/25 00:00 99.2 F 80 16 126/81 95 01/26/25 19:58 92 H 18 95 01/26/25 19:46 99.1 F 95 H 23 151/70 95 01/26/25 16:00 98.3 F 74 19 131/68 95 Pain Assessment - Last Documented Pain Intensity 0 Pain Scale Used 0-10 Pain Scale Intake and Output: Intake & Output 01/25/25 01/26/25 01/27/25 12/25 11:59 11:59 11:59 11:59 Intake Total 2123 480 Output Total 200 Balance 1923 480 Weight 92.9 kg Lab Results: Lab Results-Last 24 Hours 01/27/25 01/27/25 01/27/25 Range/Units 04:38 04:38 04:38 WBC 9.7 H (4.23-9.07) x10^3/uL RBC 4.89 (4.63-6.08) x10^6/uL Hgb 14.7 (13.7-17.5) g/dL Hct 44.3 (40.1-51.0) % MCV 90.6 (79.0-92.2) fL MCH 30.1 (25.7-32.2) pg MCHC 33.2 (32.3-36.5) g/dL RDW 13.8 (11.6-14.4) % Plt Count 131 L (163-337) x10^3/uL MPV 12.0 (9.4-12.4) fL Sodium 136 (135-145) mmol/L Potassium 3.6 (3.5-5.1) mmol/L Chloride 106 (98-107) mmol/L Carbon Dioxide 18 L (22-30) mmol/L Anion Gap 15.6 H (5-15) MEQ/L BUN 16 (9-20) mg/dL Creatinine 0.90 (0.66-1.25) mg/dL Estimated GFR 91.3 ML/MIN Glucose 92 (74-106) mg/dL Calcium 8.8 (8.4-10.2) mg/dL Total Bilirubin 1.00 (0.2-1.3) mg/dL AST 39 (17-59) U/L ALT 31 (0-50) U/L Alkaline Phosphatase 55 (38-126) U/L Serum Total Protein 6.0 L (6.3-8.2) g/dL Albumin 3.8 (3.5-5.0) g/dL Triglycerides 115 (30-150) mg/dL Cholesterol 117 (50-200) mg/dL LDL Cholesterol 64 (30-100) mg/dL HDL Cholesterol 29 L (40-60) mg/dL Heart Disease Risk Ratio 4.0 Radiology Exams: Radiology Procedures Category Date Time Status ABDOMEN AND PELVIS W/0 CONTRAS [CT] Stat Exams 01/26/25 07:03 Completed CHEST 1 VIEW (PORTABLE) Stat Exams 01/26/25 07:03 Completed CHEST WITH CONTRAST [CT] Routine Exams 01/26/25 10:57 Completed Medications: Medications Generic Name Dose Route Start Last Admin Trade Name Freq PRN Reason Stop Dose Admin Acetaminophen 650 mg 01/26/25 12:00 01/27/25 11:42 Acetaminophen 325 Mg Tablet PO 02/25/25 11:59 650 mg Q6H JUANCARLOS Administration Albuterol/Ipratropium 3 ml 01/26/25 12:57 Ipratropium/Albuterol Sulfate 3 Ml Ampul.Neb IH 02/25/25 12:56 Q4HPRN PRN SHORTNESS OF BREATH/WHEEZING Benzonatate 100 mg 01/26/25 12:46 Benzonatate 100 Mg Capsule PO 02/25/25 12:45 TID PRN PRN COUGH Fluticasone Propionate 0 gm 01/26/25 14:00 01/27/25 09:30 Fluticasone Propionate 16 Gm Bottle Nasal [place] NS 02/25/25 13:59 16 gm DAILY JUANCARLOS Administration Heparin Sodium (Beef Lung) 5,000 unit 01/26/25 22:00 01/27/25 09:31 Heparin 5000 Units/0.5 Ml 5,000 Unit/0.5 Ml Syr SQ 02/25/25 21:59 5,000 unit BID JUANCARLOS Administration Sodium Chloride 1,000 mls @ 75 mls/hr 01/26/25 12:00 01/27/25 01:51 Sodium Chloride 0.9% 1000 Ml IV 02/25/25 11:59 75 mls/hr .[id number] JUANCARLOS Administration Azithromycin 500 mg/ Sodium 250 mls @ 250 mls/hr 01/27/25 10:00 01/27/25 10:38 Chloride IV 02/26/25 09:59 250 mls/hr Q24H10 JUANCARLOS Administration Ceftriaxone Sodium 1 gm in 100 mls @ 200 mls/hr 01/27/25 10:00 01/27/25 09:26 Rocephin 1 Gm / 100 Ml Nacl IV 02/26/25 09:59 200 mls/hr Q24H10 JUANCARLOS Administration Lactobacillus Acidophilus 1 tab 01/26/25 14:00 01/27/25 09:30 Lactobacillus Acidophilus 1 Tab Tablet PO 02/25/25 13:59 1 tab DAILY JUANCARLOS Administration Pantoprazole Sodium 40 mg 01/27/25 10:00 01/27/25 09:30 Protonix (Pantoprazole) 40 Mg Tablet PO 02/26/25 09:59 40 mg DAILY JUANCARLOS Administration Prochlorperazine Edisylate 10 mg 01/26/25 12:02 Prochlorperazine Edisylate 10 Mg/2 Ml Vial IV 02/25/25 12:01 Q6H PRN PRN NAUSEA/VOMITING Tamsulosin HCl 0.4 mg 01/26/25 14:00 01/27/25 09:30 Tamsulosin Hcl 0.4 Mg Cap PO 02/25/25 13:59 0.4 mg DAILY JUANCARLOS Administration Discontinued Medications Generic Name Dose Route Start Last Admin Trade Name Freq PRN Reason Stop Dose Admin Acetaminophen 975 mg 01/26/25 08:08 Acetaminophen 325 Mg Tablet PO 01/26/25 08:09 STAT ONE Acetaminophen 1,000 mg 01/26/25 08:09 01/26/25 08:34 Acetaminophen 1,000 Mg/100 Ml Ml IV 01/26/25 08:10 1,000 mg ONCE STA Administration Diphenhydramine HCl 25 mg 01/27/25 13:44 01/27/25 13:52 Diphenhydramine Hcl 25 Mg Capsule PO 01/27/25 13:45 25 mg STAT ONE Administration Sodium Chloride 1,000 mls @ 999 mls/hr 01/26/25 06:32 01/26/25 08:11 Sodium Chloride 0.9% 1000 Ml IV 01/26/25 07:32 Infused .Q1H1M STA Infusion Sodium Chloride Confirm 01/26/25 06:41 Sodium Chloride 0.9% 1000 Ml Administered 01/26/25 06:42 Dose 1,000 mls @ ud .ROUTE .STK-MED ONE Ceftriaxone Sodium 2 gm in 100 mls @ 200 mls/hr 01/26/25 09:40 01/26/25 10:03 Rocephin 2 Gm/100 Ml Nacl IV 01/26/25 10:09 200 mls/hr STAT ONE 200 mls/hr Administration Azithromycin 500 mg/ Sodium 250 mls @ 250 mls/hr 01/26/25 09:40 01/26/25 11:53 Chloride IV 01/26/25 10:39 250 mls/hr STAT STA Administration Ceftriaxone Sodium Confirm 01/26/25 10:02 Rocephin 2 Gm/100 Ml Nacl Administered 01/26/25 10:03 Dose 2 gm in 100 mls @ ud IV .STK-MED ONE Ondansetron HCl 4 mg 01/26/25 06:32 01/26/25 06:46 Ondansetron Hcl 4 Mg/2 Ml Vial IV 01/26/25 06:33 4 mg STAT ONE Administration Ondansetron HCl Confirm 01/26/25 06:41 Ondansetron Hcl 4 Mg/2 Ml Vial Administered 01/26/25 06:42 Dose 4 mg .ROUTE .STK-MED ONE Ondansetron HCl 4 mg 01/26/25 11:58 Ondansetron Hcl 4 Mg/2 Ml Vial IV 02/25/25 11:57 Q6H PRN PRN NAUSEA/VOMITING Pantoprazole Sodium 40 mg 01/26/25 06:32 01/26/25 06:47 Pantoprazole 40 Mg Vial IV 01/26/25 06:33 40 mg STAT ONE Administration Pantoprazole Sodium Confirm 01/26/25 06:41 Pantoprazole 40 Mg Vial Administered 01/26/25 06:42 Dose 40 mg IV .STK-MED ONE Prochlorperazine Edisylate 10 mg 01/26/25 11:55 01/26/25 12:12 Prochlorperazine Edisylate 10 Mg/2 Ml Vial IV 01/26/25 11:56 10 mg STAT ONE Administration <SAMANTHA SMITH - Last Filed: 01/27/25 15:25> Assessment/Plan (1) Pneumonia Current Visit: Yes Status: Acute Code(s): J18.9 - PNEUMONIA, UNSPECIFIED ORGANISM (2) Nausea, vomiting, and diarrhea Current Visit: Yes Status: Acute Code(s): R11.2 - NAUSEA WITH VOMITING, UNSP ECIFIED; R19.7 - DIARRHEA, UNSPECIFIED (3) Dehydration Current Visit: Yes Status: Acute Code(s): E86.0 - DEHYDRATION (4) Headache Current Visit: Yes Status: Acute Code(s): R51.9 - HEADACHE, UNSPECIFIED (5) Fever Current Visit: Yes Status: Acute Code(s): R50.9 - FEVER, UNSPECIFIED (6) Abdominal pain Current Visit: Yes Status: Acute Code(s): R10.9 - UNSPECIFIED ABDOMINAL PAIN (7) Gallstones Current Visit: Yes Status: Acute Code(s): K80.20 - CALCULUS OF GALLBLADDER W/O CHOLECYSTITIS W/O OBSTRUCTION (8) BPH (benign prostatic hyperplasia) Current Visit: Yes Status: Chronic Code(s): N40.0 - BENIGN PROSTATIC HYPERPLASIA WITHOUT LOWER URINRY TRACT SYMP (9) Emphysema lung Current Visit: Yes Status: Chronic Assessment & Plan: (1) Pneumonia Current Visit: Yes Status: Acute Assessment & Plan: - As seen on CXR: Portable apical lordotic chest demonstrates mild left infrahilar interstitial opacities, possible pneumonia/pneumonitis. No consolidation/large effusion. Heart not enlarged. Bony thorax intact with osteopenia and mild degenerative changes. - CTA chest pending - Ceftriaxone, azithromycin - O2 2lNC at 94%- BL RA - RT to wean O2 - Lung sounds clear - BC x2 pending - CBC, CMP reviewed - Duonebs Q4 PRN - Tessalon for cough - Tele- consider steroids - Tylenol Q6 12/6 -CTA: 1. Respiration artifact limits pulmonary embolus evaluation. No obvious pulmonary embolus. 2. Subtle patchy left lower and left upper lobe ground-glass airspace disease presumed clinically reported pneumonia. 3. Chronic findings including bibasilar atelectasis/scarring, hiatal hernia, degenerative spondylosis, levoscoliosis, and old granulomatous disease. - CBC, CMP reviewed - RA 91% - BC x2 negative - Sputum culture pending Code(s): J18.9 - PNEUMONIA, UNSPECIFIED ORGANISM (2) Nausea, vomiting, and diarrhea Current Visit: Yes Status: Acute Assessment & Plan: - Compazine started - Received Zofran in ER - Diarrhea resolved - Probiotic /6 - Resolved Code(s): R11.2 - NAUSEA WITH VOMITING, UNSPECIFIED; R19.7 - DIARRHEA, UNSPECIFIED (3) Dehydration Current Visit: Yes Status: Acute Assessment & Plan: - Anion gap 19.6 - IVF - NS @ 75ml/hr started - CO2 17- trend - CMP reviewed - Urine specific gravity elevated / - Anion Gap 15.6- improved - Continue IVF Code(s): E86.0 - DEHYDRATION (4) Headache Current Visit: Yes Status: Acute Assessment & Plan: - Tylenol Q6 hr - IVF - Flu/COVID/RSV negative - Flonase for sinus pressure Code(s): R51.9 - HEADACHE, UNSPECIFIED (5) Fever Current Visit: Yes Status: Acute Assessment & Plan: - Temp 100.5 on admission - Tylenol IV gave in ER - Scheduled PO Tylenol started 01/27 - Temp 99 overnight Code(s): R50.9 - FEVER, UNSPECIFIED (6) Abdominal pain Current Visit: Yes Status: Acute Assessment & Plan: CT abd/pelvis: 1. Chronic findings including pulmonary emphysema, atelectasis/scarring, hiatal hernia, sigmoid diverticulosis, cholesterol gallstones, enlarged prostate gland, arteriosclerotic disease, and chronic bony findings. 2. Remaining CT abdomen/pelvis without contrast is negative. - CBC, CMP reviewed - Tele - Compazine for N/V - Probiotic 01/27 - Sxs resolved Code(s): R10.9 - UNSPECIFIED ABDOMINAL PAIN (7) Gallstones Current Visit: Yes Status: Acute Assessment & Plan: - Cholesterol gallstones see on CT abd/pelvis - Non-obstructing - Lipid panel in AM 01/27 - Lipid panel reviewed - HDL 29- diet and exercise education provided Code(s): K80.20 - CALCULUS OF GALLBLADDER W/O CHOLECYSTITIS W/O OBSTRUCTION (8) BPH (benign prostatic hyperplasia) Current Visit: Yes Status: Chronic Assessment & Plan: - Continue Flomax Code(s): N40.0 - BENIGN PROSTATIC HYPERPLASIA WITHOUT LOWER URINRY TRACT SYMP (9) Emphysema lung Current Visit: Yes Status: Chronic Assessment & Plan: - Chronic as seen on CTA abd - CTA chest pending - Wean from O2 @ 2lNC- BL RA 01/27 - RA 95% VTE: Heaprin BID PPI: Protonix Next of Kin: D/C plan: Tomorrow Code status: Full Plan of care time: > 52 minutes Code(s): J43.9 - EMPHYSEMA, UNSPECIFIED Code(s): J43.9 - EMPHYSEMA, UNSPECIFIED <LENIN-LEANNE MUKHERJEE - Last Filed: 01/27/25 13:07>
[2025-01-27] MEDS: BENADRYL 25 MG CAPSULE PO ONE (13:52)
[2025-01-27] MEDS: DUONEB 0.5-3 MG/3 ml Neb IH PRN (19:17)
[2025-01-28] MEDS: Compazine 10 MG/2 ML IV PRN (03:47)
[2025-01-28 06:06] LABS: Hematocrit 40.8 % (40.1-51.0); Hemoglobin 13.8 g/dL (13.7-17.5); Mean Corpuscular Hemoglobin 30.6 pg (25.7-32.2); Mean Corpuscular Hgb Concent. 33.8 g/dL (32.3-36.5); Platelet Count 116 x10^3/uL (163-337); Red Blood Count 4.51 x10^6/uL (4.63-6.08); White Blood Count 6.3 x10^3/uL (4.23-9.07)
[2025-01-28 06:14] LABS: Calcium 8.6 mg/dL (8.4-10.2); Carbon Dioxide 18.0 mmol/L (22-30); Creatinine 1 0.87 mg/dL (0.66-1.25); EST GLOMERULAR FILTRATION RATE 92.3 ML/MIN; Glucose 100.0 mg/dL (74-106); Potassium 3.3 mmol/L (3.5-5.1); SGOT/AST 43.0 U/L (17-59); SGPT/ALT 32.0 U/L (0-50); Total Protein 5.9 g/dL (6.3-8.2)
[2025-01-28 06:54] LABS: Slide Review YES
[2025-01-28 07:31] VITALS: BP 103/70; PULSE 82; RESP 16; TEMP 98.5; O2SAT 94
[2025-01-28] MEDS: Klor Con PO ONE (08:25)
--- NOTE | 2025-01-28 09:39 | PCM.NOTE ---
Date and Time: 01/28/25 0934 Subjective Assessment: 01/26/25 Mr.ROE NORMAN is a 69 year old male with a history of emphysema, BPH, GERD, and osteoarthritis who was admitted on 01/26/25 with intermittent vomiting over the past eight days, associated with cough and low grade fever following exposure to family members with similar symptoms. He denied chest pain and has no history of coronary artery disease. Initial evaluation revealed mild abdominal cramping, inability to tolerate oral intake, and chest x?ray findings of mild left infrahilar interstitial opacities suggestive of possible pneumonia or pneumonitis. CT abdomen demonstrated only chronic findings without acute abnormalities. He was started on IV antibiotics, Zofran, and later Compazine for persistent nausea and vomiting. On 01/27/25, he reported feeling somewhat better but continued to have elevated temperatures and night sweats. Blood cultures remained negative, sputum culture was pending, and his white blood cell count was elevated at 9.7. Management included IV fluids, IV antibiotics, steroids, breathing treatments, and Advair, with plans to continue hospitalization another night. On 01/28/25, the patient was resting in a chair and stated he was ready to go home. He was stable on room air with oxygen saturation of 94%. Potassium was 3.3 and replaced. A rash noted on his back the prior day had improved, with no further itching. He remained afebrile overnight, and blood cultures 2 were negative, as was sputum culture. Dehydration had resolved, and IV fluids were discontinued. He will continue antibiotics and steroids as an outpatient for pneumonia, with an inhaler prescribed as needed for shortness of breath. He was instructed to follow up with his family physician next week for repeat chest x- ray and labs. At discharge, he denied chest pain, shortness of breath, abdominal pain, nausea, vomiting, or diarrhea and was considered stable for discharge home. - Review of Systems Constitutional: No Fever, No Chills Eyes: No Symptoms Ears, Nose, & Throat: No Symptoms Respiratory: Wheezing, No Cough, No Short Of Breath Cardiac: No Chest Pain, No Edema, No Syncope Abdominal/Gastrointestinal: Nausea, No Abdominal Pain, No Vomiting, No Diarrhea Genitourinary Symptoms: No Dysuria Musculoskeletal: No Back Pain, No Neck Pain Skin: No Rash Neurological: No Dizziness, No Focal Weakness, No Sensory Changes Psychological: No Symptoms Endocrine: No Symptoms Hematologic/Lymphatic: No Symptoms Immunological/Allergic: No Symptoms Objective Exam General Appearance: no apparent distress, alert Neurologic Exam: alert, oriented x 3, cooperative, normal mood/affect, nml cerebellar function, sensation nml, No motor deficits Skin Exam: normal color, warm, dry Eye Exam: PERRL, EOMI, eyes nml inspection Ears, Nose, Throat Exam: normal ENT inspection, pharynx normal, moist mucous mem branes Neck Exam: normal inspection, non-tender, supple, full range of motion Respiratory Exam: normal breath sounds, lungs clear, wheezing (EFREN), No respiratory distress Cardiovascular Exam: regular rate/rhythm, normal heart sounds Gastrointestinal/Abdomen Exam: soft, No tenderness, No mass Extremity Exam: normal inspection, normal range of motion Back Exam: normal inspection, normal range of motion, No CVA tenderness, No vertebral tenderness Male Genitalia Exam: deferred Rectal Exam: deferred Objective Data Vital Signs: Vital Signs - 24 hr Temp Pulse Resp BP Pulse Ox 01/28/25 07:29 98.5 F 82 16 103/70 94 L 01/28/25 04:00 98.2 F 97 H 18 142/88 95 01/28/25 00:00 98.9 F 65 18 115/56 95 01/27/25 19:59 98.4 F 111 H 20 117/74 94 L 01/27/25 19:18 87 16 98 01/27/25 15:54 98.4 F 56 L 20 125/77 96 01/27/25 11:29 98.4 F 67 16 111/59 95 Pain Assessment - Last Documented Pain Intensity 0 Pain Scale Used 0-10 Pain Scale Intake and Output: Intake & Output 01/25/25 01/26/25 01/27/25 01/28/25 11:59 11:59 11:59 11:59 Intake Total 2123 3891 Output Total 200 Balance 1923 3891 Weight 92.9 kg Lab Results: Lab Results-Last 24 Hours 01/28/25 01/28/25 Range/Units 05:20 05:20 WBC 6.3 (4.23-9.07) x10^3/uL RBC 4.51 L (4.63-6.08) x10^6/uL Hgb 13.8 (13.7-17.5) g/dL Hct 40.8 (40.1-51.0) % MCV 90.5 (79.0-92.2) fL MCH 30.6 (25.7-32.2) pg MCHC 33.8 (32.3-36.5) g/dL RDW 14.0 (11.6-14.4) % Plt Count 116 L (163-337) x10^3/uL MPV 11.5 (9.4-12.4) fL Sodium 139 (135-145) mmol/L Potassium 3.3 L (3.5-5.1) mmol/L Chloride 110 H (98-107) mmol/L Carbon Dioxide 18 L (22-30) mmol/L Anion Gap 13.9 (5-15) MEQ/L BUN 13 (9-20) mg/dL Creatinine 0.87 (0.66-1.25) mg/dL Estimated GFR 92.3 ML/MIN Glucose 100 (74-106) mg/dL Calcium 8.6 (8.4-10.2) mg/dL Total Bilirubin 0.70 (0.2-1.3) mg/dL AST 43 (17-59) U/L ALT 32 (0-50) U/L Alkaline Phosphatase 60 (38-126) U/L Serum Total Protein 5.9 L (6.3-8.2) g/dL Albumin 3.5 (3.5-5.0) g/dL Slides for Path Review YES Radiology Exams: Radiology Procedures Category Date Time Status CHEST WITH CONTRAST [CT] Routine Exams 01/26/25 10:57 Completed Medications: Medications Generic Name Dose Route Start Last Admin Trade Name Freq PRN Reason Stop Dose Admin Acetaminophen 650 mg 01/26/25 12:00 01/28/25 06:39 Acetaminophen 325 Mg Tablet PO 02/25/25 11:59 650 mg Q6H JUANCARLOS Administration Albuterol/Ipratropium 3 ml 01/26/25 12:57 01/27/25 19:17 Ipratropium/Albuterol Sulfate 3 Ml Ampul.Neb IH 02/25/25 12:56 3 ml Q4HPRN PRN Administration SHORTNESS OF BREATH/WHEEZING Benzonatate 100 mg 01/26/25 12:46 Benzonatate 100 Mg Capsule PO 02/25/25 12:45 TID PRN PRN COUGH Fluticasone Propionate 0 gm 01/26/25 14:00 01/27/25 09:30 Fluticasone Propionate 16 Gm Bottle Nasal [place] NS 02/25/25 13:59 16 gm DAILY JUANCARLOS Administration Heparin Sodium (Beef Lung) 5,000 unit 01/26/25 22:00 01/27/25 23:02 Heparin 5000 Units/0.5 Ml 5,000 Unit/0.5 Ml Syr SQ 02/25/25 21:59 5,000 unit BID JUANCARLOS Administration Azithromycin 500 mg/ Sodium 250 mls @ 250 mls/hr 01/27/25 10:00 01/27/25 10:38 Chloride IV 02/26/25 09:59 250 mls/hr Q24H10 JUANCARLOS Administration Ceftriaxone Sodium 1 gm in 100 mls @ 200 mls/hr 01/27/25 10:00 01/27/25 09:26 Rocephin 1 Gm / 100 Ml Nacl IV 02/26/25 09:59 200 mls/hr Q24H10 JUANCARLOS Administration Lactobacillus Acidophilus 1 tab 01/26/25 14:00 01/27/25 09:30 Lactobacillus Acidophilus 1 Tab Tablet PO 02/25/25 13:59 1 tab DAILY JUANCARLOS Administration Pantoprazole Sodium 40 mg 01/27/25 10:00 01/27/25 09:30 Protonix (Pantoprazole) 40 Mg Tablet PO 02/26/25 09:59 40 mg DAILY JUANCARLOS Administration Prochlorperazine Edisylate 10 mg 01/26/25 12:02 01/28/25 03:47 Prochlorperazine Edisylate 10 Mg/2 Ml Vial IV 02/25/25 12:01 10 mg Q6H PRN PRN Administration NAUSEA/VOMITING Tamsulosin HCl 0.4 mg 01/26/25 14:00 01/27/25 09:30 Tamsulosin Hcl 0.4 Mg Cap PO 02/25/25 13:59 0.4 mg DAILY JUANCARLOS Administration Discontinued Medications Generic Name Dose Route Start Last Admin Trade Name Freq PRN Reason Stop Dose Admin Acetaminophen 975 mg 01/26/25 08:08 Acetaminophen 325 Mg Tablet PO 01/26/25 08:09 STAT ONE Acetaminophen 1,000 mg 01/26/25 08:09 01/26/25 08:34 Acetaminophen 1,000 Mg/100 Ml Ml IV 01/26/25 08:10 1,000 mg ONCE STA Administration Diphenhydramine HCl 25 mg 01/27/25 13:44 01/27/25 13:52 Diphenhydramine Hcl 25 Mg Capsule PO 01/27/25 13:45 25 mg STAT ONE Administration Sodium Chloride 1,000 mls @ 999 mls/hr 01/26/25 06:32 01/26/25 08:11 Sodium Chloride 0.9% 1000 Ml IV 01/26/25 07:32 Infused .Q1H1M STA Infusion Sodium Chloride Confirm 01/26/25 06:41 Sodium Chloride 0.9% 1000 Ml Administered 01/26/25 06:42 Dose 1,000 mls @ ud .ROUTE .STK-MED ONE Ceftriaxone Sodium 2 gm in 100 mls @ 200 mls/hr 01/26/25 09:40 01/26/25 10:03 Rocephin 2 Gm/100 Ml Nacl IV 01/26/25 10:09 200 mls/hr STAT ONE 200 mls/hr Administration Azithromycin 500 mg/ Sodium 250 mls @ 250 mls/hr 01/26/25 09:40 01/26/25 11:53 Chloride IV 01/26/25 10:39 250 mls/hr STAT STA Administration Ceftriaxone Sodium Confirm 01/26/25 10:02 Rocephin 2 Gm/100 Ml Nacl Administered 01/26/25 10:03 Dose 2 gm in 100 mls @ ud IV .STK-MED ONE Sodium Chloride 1,000 mls @ 75 mls/hr 01/26/25 12:00 01/28/25 05:17 Sodium Chloride 0.9% 1000 Ml IV 02/25/25 11:59 75 mls/hr .[id number] JUANCARLOS Administration Ondansetron HCl 4 mg 01/26/25 06:32 01/26/25 06:46 Ondansetron Hcl 4 Mg/2 Ml Vial IV 01/26/25 06:33 4 mg STAT ONE Administration Ondansetron HCl Confirm 01/26/25 06:41 Ondansetron Hcl 4 Mg/2 Ml Vial Administered 01/26/25 06:42 Dose 4 mg .ROUTE .STK-MED ONE Ondansetron HCl 4 mg 01/26/25 11:58 Ondansetron Hcl 4 Mg/2 Ml Vial IV 02/25/25 11:57 Q6H PRN PRN NAUSEA/VOMITING Pantoprazole Sodium 40 mg 01/26/25 06:32 01/26/25 06:47 Pantoprazole 40 Mg Vial IV 01/26/25 06:33 40 mg STAT ONE Administration Pantoprazole Sodium Confirm 01/26/25 06:41 Pantoprazole 40 Mg Vial Administered 01/26/25 06:42 Dose 40 mg IV .STK-MED ONE Potassium Chloride 40 meq 01/28/25 07:43 01/28/25 08:25 Potassium Chloride Tab 10 Meq Tab PO 01/28/25 07:44 40 meq STAT ONE Administration Prochlorperazine Edisylate 10 mg 01/26/25 11:55 01/26/25 12:12 Prochlorperazine Edisylate 10 Mg/2 Ml Vial IV 01/26/25 11:56 10 mg STAT ONE Administration Assessment/Plan (1) Pneumonia Current Visit: Yes Status: Acute Code(s): J18.9 - PNEUMONIA, UNSPECIFIED ORGANISM (2) Nausea, vomiting, and diarrhea Current Visit: Yes Status: Acute Code(s): R11.2 - NAUSEA WITH VOMITING, UNSPECIFIED; R19.7 - DIARRHEA, UNSPECIFIED (3) Dehydration Current Visit: Yes Status: Acute Code(s): E86.0 - DEHYDRATION (4) Headache Current Visit: Yes Status: Acute Code(s): R51.9 - HEADACHE, UNSPECIFIED (5) Fever Current Visit: Yes Status: Acute Code(s): R50.9 - FEVER, UNSPECIFIED (6) Abdominal pain Current Visit: Yes Status: Acute Code(s): R10.9 - UNSPECIFIED ABDOMINAL PAIN (7) Gallstones Current Visit: Yes Status: Acute Code(s): K80.20 - CALCULUS OF GALLBLADDER W/O CHOLECYSTITIS W/O OBSTRUCTION (8) BPH (benign prostatic hyperplasia) Current Visit: Yes Status: Chronic Code(s): N40.0 - BENIGN PROSTATIC HYPERPLASIA WITHOUT LOWER URINRY TRACT SYMP (9) Emphysema lung Current Visit: Yes Status: Chronic Assessment & Plan: (1) Pneumonia Current Visit: Yes Status: Acute Assessment & Plan: - As seen on CXR: Portable apical lordotic chest demonstrates mild left infrahilar interstitial opacities, possible pneumonia/pneumonitis. No consolidation/large effusion. Heart not enlarged. Bony thorax intact with osteopenia and mild degenerative changes. - CTA chest pending - Ceftriaxone, azithromycin - O2 2lNC at 94%- BL RA - RT to wean O2 - Lung sounds clear - BC x2 pending - CBC, CMP reviewed - Duonebs Q4 PRN - Tessalon for cough - Tele- consider steroids - Tylenol Q6 01/27 -CTA: 1. Respiration artifact limits pulmonary embolus evaluation. No obvious pulmonary embolus. 2. Subtle patchy left lower and left upper lobe ground-glass airspace disease presumed clinically reported pneumonia. 3. Chronic findings including bibasilar atelectasis/scarring, hiatal hernia, degenerative spondylosis, levoscoliosis, and old granulomatous disease. - CBC, CMP reviewed - RA 91% - BC x2 negative - Sputum culture pending 01/28 - CBC, CMP reviewed - WBC 6.3 - RA 94% - Continue outpatient antibiotic steroids albuterol inhaler and Zofran for nausea.. Code(s): J18.9 - PNEUMONIA, UNSPECIFIED ORGANISM (2) Nausea, vomiting, and diarrhea Current Visit: Yes Status: Acute Assessment & Plan: - Compazine started - Received Zofran in ER - Diarrhea resolved - Probiotic 01/27 - Resolved 01/28 - D/c with Zofran ODT- PRN - Pt nausea today- pt reports this is chronic for him. Code(s): R11.2 - NAUSEA WITH VOMITING, UNSPECIFIED; R19.7 - DIARRHEA, UNSPECIFIED (3) Dehydration Current Visit: Yes Status: Acute Assessment & Plan: - Anion gap 19.6 - IVF - NS @ 75ml/hr started - CO2 17- trend - CMP reviewed - Urine specific gravity elevated 01/27 - Anion Gap 15.6- improved - Continue IVF 01/28 - Resolved - Stop IVF Code(s): E86.0 - DEHYDRATION (4) Headache Current Visit: Yes Status: Acute Assessment & Plan: - Tylenol Q6 hr - IVF - Flu/COVID/RSV negative - Flonase for sinus pressure 01/28 - resolved Code(s): R51.9 - HEADACHE, UNSPECIFIED (5) Fever Current Visit: Yes Status: Acute Assessment & Plan: - Temp 100.5 on admission - Tylenol IV gave in ER - Scheduled PO Tylenol started 01/27 - Temp 99 overnight 01/28 - Resolved Code(s): R50.9 - FEVER, UNSPECIFIED (6) Abdominal pain Current Visit: Yes Status: Acute Assessment & Plan: CT abd/pelvis: 1. Chronic findings including pulmonary emphysema, atelectasis/scarring, hiatal hernia, sigmoid diverticulosis, cholesterol gallstones, enlarged prostate gland, arteriosclerotic disease, and chronic bony findings. 2. Remaining CT abdomen/pelvis without contrast is negative. - CBC, CMP reviewed - Tele - Compazine for N/V - Probiotic 01/27 - Sxs resolved Code(s): R10.9 - UNSPECIFIED ABDOMINAL PAIN (7) Gallstones Current Visit: Yes Status: Acute Assessment & Plan: - Cholesterol gallstones see on CT abd/pelvis - Non-obstructing - Lipid panel in AM 01/27 - Lipid panel reviewed - HDL 29- diet and exercise education provided Code(s): K80.20 - CALCULUS OF GALLBLADDER W/O CHOLECYSTITIS W/O OBSTRUCTION (8) BPH (benign prostatic hyperplasia) Current Visit: Yes Status: Chronic Assessment & Plan: - Continue Flomax Code(s): N40.0 - BENIGN PROSTATIC HYPERPLASIA WITHOUT LOWER URINRY TRACT SYMP (9) Emphysema lung Current Visit: Yes Status: Chronic Assessment & Plan: - Chronic as seen on CTA abd - CTA chest pending - Wean from O2 @ 2lNC- BL RA 01/27 - RA 95% 01/28 - RA 94% Code(s): J43.9 - EMPHYSEMA, UNSPECIFIED (10) Low HDL (under 40) Current Visit: Yes Status: Acute Assessment & Plan: - HDL 29- education provided on diet and exercise to improve Code(s): E78.6 - LIPOPROTEIN DEFICIENCY (11) Rash Current Visit: Yes Status: Acute Assessment & Plan: - Pt developed a rash yesterday he states after getting out of the shower and Benadryl x1 was given - Denies sxs today. D/C plan of care time > 40 minutes Code(s): R21 - RASH AND OTHER NONSPECIFIC SKIN ERUPTION
--- NOTE | 2025-01-28 09:49 | PCM.DS ---
Discharge Summary Date of Admission: 01/26/25 10:29 Date of Discharge: 01/28/25 Admitting Physician: VICTOR MANUEL CROWE MD Primary Care Provider: TASHA GARNER Allergies Allergies Sulfa (Sulfonamide Antibiotics) Allergy (Verified 01/26/25 11:43) Rash hydrocodone Adverse Reaction (Verified 01/26/25 06:17) Vomiting [facility] Summary - Hospital Course Hospital Course: 01/28/25 Mr.ROE NORMAN is a 69 year old male with a history of emphysema, BPH, GERD, and osteoarthritis who was admitted on 01/26/25 with intermittent vomiting over the past eight days, associated with cough and low grade fever following exposure to family members with similar symptoms. He denied chest pain and has no history of coronary artery disease. Initial evaluation revealed mild abdominal cramping, inability to tolerate oral intake, and chest x?ray findings of mild left infrahilar interstitial opacities suggestive of possible pneumonia or pneumonitis. CT abdomen demonstrated only chronic findings without acute abnormalities. He was started on IV antibiotics, Zofran, and later Compazine for persistent nausea and vomiting. On 01/27/25, he reported feeling somewhat better but continued to have elevated temperatures and night sweats. Blood cultures remained negative, sputum culture was pending, and his white blood cell count was elevated at 9.7. Management included IV fluids, IV antibiotics, steroids, breathing treatments, and Advair, with plans to continue hospitalization another night. On 01/28/25, the patient was resting in a chair and stated he was ready to go home. He was stable on room air with oxygen saturation of 94%. Potassium was 3.3 and replaced. A rash noted on his back the prior day had improved, with no further itching. He remained afebrile overnight, and blood cultures 2 were negative, as was sputum culture. Dehydration had resolved, and IV fluids were discontinued. He will continue antibiotics and steroids as an outpatient for pneumonia, with an inhaler prescribed as needed for shortness of breath. He was instructed to follow up with his family physician next week for repeat chest x- ray and labs. At discharge, he denied chest pain, shortness of breath, abdominal pain, nausea, vomiting, or diarrhea and was considered stable for discharge home. - Vitals & Intake/Output Vital Signs: Vital Signs Temperature 98.5 F 01/28/25 07:29 Pulse Rate 82 01/28/25 07:29 Respiratory Rate 16 01/28/25 07:29 Blood Pressure 103/70 01/28/25 07:29 O2 Sat by Pulse Oximetry 94 L 01/28/25 07:29 Intake & Output: Intake & Output 01/25/25 01/26/25 01/27/25 01/28/25 11:59 11:59 11:59 11:59 Intake Total 2123 3891 Output Total 200 Balance 1923 3891 Weight 92.9 kg - Lab Result Diagrams: 01/28/25 05:20 01/28/25 05:20 Lab Results-Last 24 Hrs: Lab Results-Last 24 Hours 01/28/25 01/28/25 Range/Units 05:20 05:20 WBC 6.3 (4.23-9.07) x10^3/uL RBC 4.51 L (4.63-6.08) x10^6/uL Hgb 13.8 (13.7-17.5) g/dL Hct 40.8 (40.1-51.0) % MCV 90.5 (79.0-92.2) fL MCH 30.6 (25.7-32.2) pg MCHC 33.8 (32.3-36.5) g/dL RDW 14.0 (11.6-14.4) % Plt Count 116 L (163-337) x10^3/uL MPV 11.5 (9.4-12.4) fL Sodium 139 (135-145) mmol/L Potassium 3.3 L (3.5-5.1) mmol/L Chloride 110 H (98-107) mmol/L Carbon Dioxide 18 L (22-30) mmol/L Anion Gap 13.9 (5-15) MEQ/L BUN 13 (9-20) mg/dL Creatinine 0.87 (0.66-1.25) mg/dL Estimated GFR 92.3 ML/MIN Glucose 100 (74-106) mg/dL Calcium 8.6 (8.4-10.2) mg/dL Total Bilirubin 0.70 (0.2-1.3) mg/dL AST 43 (17-59) U/L ALT 32 (0-50) U/L Alkaline Phosphatase 60 (38-126) U/L Serum Total Protein 5.9 L (6.3-8.2) g/dL Albumin 3.5 (3.5-5.0) g/dL Slides for Path Review YES Micro Results-Entire Visit: Microbiology 01/27/25 09:30 Gram Stain - Final Sputum - Expectorant 01/26/25 06:53 Blood Culture - Preliminary Blood 01/26/25 06:50 Blood Culture - Preliminary Blood - Radiology Exams Ordered Rad Exams-Entire Visit: Radiology Procedures Category Date Time Status CHEST WITH CONTRAST [CT] Routine Exams 01/26/25 10:57 Completed - Procedures and Test Procedures and Tests throughout Hospitalization: Therapy Orders & Screens 01/26/25 10:58 Oxygen NASAL CANNULA 2 lpm Comment: Diagnosis: Pneumonia, hypoxia 01/26/25 11:37 OT Screen per Nursing Assess ONCE Comment: Protocol Order Physician Instructions: Greater than 3 points order OT Admission Screening Reason For Exam: Triggered on Admission Diagnosis: pneumonia Open Wound/Cellutlitis/Pressure Ulcers: No Acute Fx/ORIF/Change in wt bearing status: No Severe MUSCULOSKELETAL pain: No ADL Dysfunction: Yes: weakness Acute CVA w/Hemiparesis/Hemiplegia: No Decreased Functional Mobility/Strength: Yes: weakness/fever Sprain/Strain: No Acute Post-op Mobility Dysfunction: No Total Points: 4 PT Screen per Nursing Assess ONCE Comment: Protocol Order Physician Instructions: Greater than 3 points order PT Admission Screenin Reason For Exam: Triggered on Admission Diagnosis: pneumonia Open Wound/Cellutlitis/Pressure Ulcers: No Acute Fx/ORIF/Change in wt bearing status: No Severe MUSCULOSKELETAL pain: No ADL Dysfunction: Yes: weakness Acute CVA w/Hemiparesis/Hemiplegia: No Decreased Functional Mobility/Strength: Yes: weakness/fever Sprain/Strain: No Acute Post-op Mobility Dysfunction: No Total Points: 4 ST Screen per Nursing Assess ONCE Comment: Protocol Order Physician Instructions: Greater than [address] Admission Screening Reason For Exam: Triggered on Admission Diagnosis: pneumonia CVA/Dysphagia/Aphasia: No Cognitive Deficits: No Dehydration/Nutrition Deficit: No Reflux: Yes: N/V Oral-Motor Difficulties: No Pneumonia: Yes Jail Resident: No Total Points: 8 01/26/25 12:18 RT Miscellaneous Order ROUTINE Comment: Physician Instructions: Reason For Exam: wean O2- baseline RA Diagnosis: pneumonia 01/26/25 13:38 Respiratory Therapy Assessment DAILY Comment: Diagnosis: pneumonia 01/26/25 13:42 Flutter Therapy UD Comment: Diagnosis: pneumonia 01/26/25 13:53 Incentive Spirometry Q1H Comment: Diagnosis: pneumonia Discharge Exam General Appearance: no apparent distress, alert Neurologic Exam: alert, oriented x 3, cooperative, normal mood/affect, nml cerebellar function, sensation nml, No motor deficits Eye Exam: PERRL, EOMI, eyes nml inspection Ears, Nose, Throat Exam: normal ENT inspection, pharynx normal, moist mucous membranes Neck Exam: normal inspection, non-tender, supple, full range of motion Respiratory Exam: normal breath sounds, wheezing (EFREN), No respiratory distress Cardiovascular Exam: regular rate/rhythm, normal heart sounds Gastrointestinal/Abdomen Exam: soft, No tenderness, No mass Male Genitalia Exam: deferred Rectal Exam: deferred Back Exam: normal inspection, normal range of motion, No CVA tenderness, No vertebral tenderness Extremity Exam: normal inspection, normal range of motion Skin Exam: normal color, warm, dry Final Diagnosis/Problem List - Final Discharge Diagnosis/Problem (1) Pneumonia Current Visit: Yes Status: Acute Code(s): J18.9 - PNEUMONIA, UNSPECIFIED ORGANISM (2) Nausea, vomiting, and diarrhea Current Visit: Yes Status: Acute Code(s): R11.2 - NAUSEA WITH VOMITING, UNSPECIFIED; R19.7 - DIARRHEA, UNSPECIFIED (3) Dehydration Current Visit: Yes Status: Acute Code(s): E86.0 - DEHYDRATION (4) Headache Current Visit: Yes Status: Acute Code(s): R51.9 - HEADACHE, UNSPECIFIED (5) Fever Current Visit: Yes Status: Acute Code(s): R50.9 - FEVER, UNSPECIFIED (6) Abdominal pain Current Visit: Yes Status: Acute Code(s): R10.9 - UNSPECIFIED ABDOMINAL PAIN (7) Gallstones Current Visit: Yes Status: Acute Code(s): K80.20 - CALCULUS OF GALLBLADDER W/O CHOLECYSTITIS W/O OBSTRUCTION (8) BPH (benign prostatic hyperplasia) Current Visit: Yes Status: Chronic Code(s): N40.0 - BENIGN PROSTATIC HYPERPLASIA WITHOUT LOWER URINRY TRACT SYMP (9) Emphysema lung Current Visit: Yes Status: Chronic Code(s): J43.9 - EMPHYSEMA, UNSPECIFIED (10) Low HDL (under 40) Current Visit: Yes Status: Acute Code(s): E78.6 - LIPOPROTEIN DEFICIENCY (11) Hypokalemia Current Visit: Yes Status: Acute Assessment & Plan: - K+ 3.3- replaced - F/U with PCP for repeat labs Code(s): E87.6 - HYPOKALEMIA (12) Rash Current Visit: Yes Status: Acute Assessment & Plan: (1) Pneumonia Current Visit: Yes Status: Acute Assessment & Plan: - As seen on CXR: Portable apical lordotic chest demonstrates mild left infrahilar interstitial opacities, possible pneumonia/pneumonitis. No consolidation/large effusion. Heart not enlarged. Bony thorax intact with osteopenia and mild degenerative changes. - CTA chest pending - Ceftriaxone, azithromycin - O2 2lNC at 94%- BL RA - RT to wean O2 - Lung sounds clear - BC x2 pending - CBC, CMP reviewed - Duonebs Q4 PRN - Tessalon for cough - Tele- consider steroids - Tylenol Q6 01/27 -CTA: 1. Respiration artifact limits pulmonary embolus evaluation. No obvious pulmonary embolus. 2. Subtle patchy left lower and left upper lobe ground-glass airspace disease presumed clinically reported pneumonia. 3. Chronic findings including bibasilar atelectasis/scarring, hiatal hernia, degenerative spondylosis, levoscoliosis, and old granulomatous disease. - CBC, CMP reviewed - RA 91% - BC x2 negative - Sputum culture pending 01/28 - CBC, CMP reviewed - WBC 6.3 - RA 94% - Continue outpatient antibiotic steroids albuterol inhaler and Zofran for nausea.. Code(s): J18.9 - PNEUMONIA, UNSPECIFIED ORGANISM (2) Nausea, vomiting, and diarrhea Current Visit: Yes Status: Acute Assessment & Plan: - Compazine started - Received Zofran in ER - Diarrhea resolved - Probiotic 01/27 - Resolved 01/28 - D/c with Zofran ODT- PRN - Pt nausea today- pt reports this is chronic for him. Code(s): R11.2 - NAUSEA WITH VOMITING, UNSPECIFIED; R19.7 - DIARRHEA, UNSPECIFIED (3) Dehydration Current Visit: Yes Status: Acute Assessment & Plan: - Anion gap 19.6 - IVF - NS @ 75ml/hr started - CO2 17- trend - CMP reviewed - Urine specific gravity elevated 01/27 - Anion Gap 15.6- improved - Continue IVF 01/28 - Resolved - Stop IVF Code(s): E86.0 - DEHYDRATION (4) Headache Current Visit: Yes Status: Acute Assessment & Plan: - Tylenol Q6 hr - IVF - Flu/COVID/RSV negative - Flonase for sinus pressure 01/28 - resolved Code(s): R51.9 - HEADACHE, UNSPECIFIED (5) Fever Current Visit: Yes Status: Acute Assessment & Plan: - Temp 100.5 on admission - Tylenol IV gave in ER - Scheduled PO Tylenol started 01/27 - Temp 99 overnight 01/28 - Resolved Code(s): R50.9 - FEVER, UNSPECIFIED (6) Abdominal pain Current Visit: Yes Status: Acute Assessment & Plan: CT abd/pelvis: 1. Chronic findings including pulmonary emphysema, atelectasis/scarring, hiatal hernia, sigmoid diverticulosis, cholesterol gallstones, enlarged prostate gland, arteriosclerotic disease, and chronic bony findings. 2. Remaining CT abdomen/pelvis without contrast is negative. - CBC, CMP reviewed - Tele - Compazine for N/V - Probiotic 01/27 - Sxs resolved Code(s): R10.9 - UNSPECIFIED ABDOMINAL PAIN (7) Gallstones Current Visit: Yes Status: Acute Assessment & Plan: - Cholesterol gallstones see on CT abd/pelvis - Non-obstructing - Lipid panel in AM 01/27 - Lipid panel reviewed - HDL 29- diet and exercise education provided Code(s): K80.20 - CALCULUS OF GALLBLADDER W/O CHOLECYSTITIS W/O OBSTRUCTION (8) BPH (benign prostatic hyperplasia) Current Visit: Yes Status: Chronic Assessment & Plan: - Continue Flomax Code(s): N40.0 - BENIGN PROSTATIC HYPERPLASIA WITHOUT LOWER URINRY TRACT SYMP (9) Emphysema lung Current Visit: Yes Status: Chronic Assessment & Plan: - Chronic as seen on CTA abd - CTA chest pending - Wean from O2 @ 2lNC- BL RA 01/27 - RA 95% 01/28 - RA 94% Code(s): J43.9 - EMPHYSEMA, UNSPECIFIED (10) Low HDL (under 40) Current Visit: Yes Status: Acute Assessment & Plan: - HDL 29- education provided on diet and exercise to improve Code(s): E78.6 - LIPOPROTEIN DEFICIENCY (11) Rash Current Visit: Yes Status: Acute Assessment & Plan: - Pt developed a rash yesterday he states after getting out of the shower and Benadryl x1 was given - Denies sxs today. D/C plan of care time > 40 minutes Code(s): R21 - RASH AND OTHER NONSPECIFIC SKIN ERUPTION Code(s): R21 - RASH AND OTHER NONSPECIFIC SKIN ERUPTION - Discharge Discharge Date: 01/28/25 Disposition: Home, Self-Care Condition: Stable Prescriptions: Continue Tamsulosin HCl 0.4 mg PO DAILY Omeprazole 40 mg PO DAILY Instructions: Pneumonia in adults, Cholesterol tests, High cholesterol, Chronic obstructive pulmonary disease (COPD) - Discharge instructions Additional Instructions: You can buy Flonase and probiotics OTC if you found these were helpful for your symptoms. - Use Tylenol as needed for fever or pain- following label directions and do not exceed daily dose recommendations. Please make an appointment this week with PCP for repeat labs and chest XR. Follow up with: TASHA GARNER [Primary Care Provider, UNKNOWN]
== END 2025-01-28 10:45 | disposition home or self-care (01) ==
LOC: ED 05:50 → MED SURG 10:29
PROVIDERS: ADMIT Internal Medicine; ATTEND Internal Medicine
DX: J18.9 Pneumonia, unspecified organism (principal); R11.2 Nausea with vomiting, unspecified; R19.7 Diarrhea, unspecified; E86.0 Dehydration; R51.9 Headache, unspecified; R50.9 Fever, unspecified; R10.9 Unspecified abdominal pain; K80.20 Calculus of gallbladder without cholecystitis without obstruction; N40.0 Benign prostatic hyperplasia without lower urinary tract symptoms; J43.9 Emphysema, unspecified; E78.6 Lipoprotein deficiency; E87.6 Hypokalemia; R21 Rash and other nonspecific skin eruption; Z79.899 Other long term (current) drug therapy
CPT/HCPCS: 36415; 71045; 71260; 74176; 80053; 80061; 81001; 82150; 83036; 83605; 83690; 83721; 83735; 84484; 85025; 85027; 86308; 87040; 87070; 87637; 93005; 93268; 94640; 94667; 94762; 96360; 96374; 96375; 99285; G0378; Q3014